=== PATIENT | female | born 1965 | race Two or more races ===

== ENCOUNTER 2016-11-30 11:28 | Emergency (ER) | payer OTHER ==
[2016-11-30 11:38] VITALS: BP 130/81
--- NOTE | 2016-11-30 12:20 | ED Physician Documentation ---
PD HPI UPPER EXT INJURY - Stated complaint Stated Complaint: R ARM INJ - Chief complaint Chief Complaint: Ext Problem - History obtained from History obtained from: Patient - History of Present Illness Location: Right, Elbow Type of injury: Fall Where injury occurred: Home Timing - onset: How many months ago (1) Timing - duration: Months (1) Timing - details: Abrupt onset, Still present Improved by: Rest, Immobilization Worsened by: Moving, Palpating Associated symptoms: No: Weakness, Numbness, Tingling, Swelling Contributing factors: No: Anticoagulated Similar symptoms before: Has not had sx before Recently seen: Other (The patient is getting dental work done at the [facility] and is on some antibiotic now.) - Additonal information Additional information: 51-year-old female had a fall out of a tree 1 month ago injuring her right elbow. She continued to work and had another fall about 2 weeks ago when she tripped over some kittens and she continues to have pain is finally coming to the emergency department. She is not able to open a door with her arm she has pain in her elbow with any movement and with direct touching of the elbow. She did not have any deformity or swelling noted. 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: Endometriosis, Ectopic , Ovarian cysts, Miscarriage(s) : Kidney stones HEENT: Chronic sinusitis, Other Psych: Depression, Post traumatic stress disorder Musculoskeletal: Osteoarthritis Derm: None - Past Surgical History Past Surgical History: Yes General: Cholecystectomy - Present Medications Home Medications: Ambulatory Orders Medication Instructions Recorded Confirmed FLUoxetine [PROzac] 80 mg ORAL DAILY 11/19/14 11/30/16 Levothyroxine [Synthroid] 175 mcg ORAL DAILY 11/19/14 11/30/16 Omeprazole [PriLOSEC] 20 mg ORAL DAILY 11/19/14 11/30/16 - Allergies Allergies/Adverse Reactions: Allergies Allergy/AdvReac Type Severity Reaction Status Date / Time No Known Drug Allergies Allergy Verified 11/30/16 11:38 - Social History Does the pt smoke?: Yes Smoking Status: Current every day smoker Does the pt drink ETOH?: Yes Does the pt have substance abuse?: No - Immunizations Immunizations are current?: Yes PD ED PE NORMAL - Vitals Vital signs reviewed: Yes (hypertensive ) - General General: No acute distress, Well developed/nourished - HEENT HEENT: Atraumatic, PERRL, EOMI - Neck Neck: Supple, no meningeal sign - Respiratory Respiratory: No respiratory distress - Derm Derm: Normal color, Warm and dry, No rash - Extremities Extremities: No deformity, No edema, Other (There is tenderness to the radial head and to the elbow area in general without swelling or crepitance. There is ROM to suppination and pronation but with pain similar to flex/extend. distal n/ v intact shoulder and wrist are without injury. ) - Neuro Neuro: Alert and oriented X 3, No motor deficit, No sensory deficit, Normal speech - Psych Psych: Normal mood, Normal affect Results - Vitals Vitals: Vital Signs - 24 hr 11/30/16 11:35 Temperature 36.4 C L Heart Rate 75 Respiratory 15 Rate Blood Pressure 130/81 H O2 Saturation 99 Oxygen O2 Source Room air - Rads (name of study) right elbow Radiology: Prelim report reviewed (Impression: No acute radiographic abnormality.), EMP read indepedently, See rad report Procedures - Splint (location) right elbow Splint applied by: Tech Type of splint: Fiberglass, Posterior Other: Patient tolerated well, No complications, Neurovascular intact, Good alignment, Sling provided PD MEDICAL DECISION MAKING - ED course Complexity details: reviewed results, re-evaluated patient, considered differential, d/w patient ED course: 51-year-old female with a sprain to the right elbow has persistent pain over the past month she is placed into a posterior splint and referred to orthopedics. Departure - Departure Disposition: 01 Home, Self Care Clinical Impression: Elbow sprain Qualifiers: Encounter type: initial encounter Laterality: right Qualified Code(s): S53.401A - Unspecified sprain of right elbow, initial encounter Condition: Stable Instructions: ED Sprain Elbow Follow-Up: [facility] [Provider Group]
--- NOTE | 2016-11-30 12:22 | XRAY Preliminary Report ---
Exam: XR Elbow 3 View RT IMPRESSION: No acute radiographic abnormality. [facility] SITE ID: [id number]
--- NOTE | 2016-11-30 12:25 | XRAY Report ---
EXAM: RIGHT ELBOW RADIOGRAPHY EXAM DATE: 11/30/2016 11:46 AM. CLINICAL HISTORY: Right elbow pain and difficulty moving after fall one week ago COMPARISON: None. TECHNIQUE: 3 views. FINDINGS: Bones: No displaced fracture. Joints: Mild osteophyte formation at the ulna humeral joint. Normal alignment. Soft Tissues: Normal. No soft tissue swelling. IMPRESSION: No acute radiographic abnormality. [facility] Referring Provider Line: [phone] SITE ID: [id number]
== END 2016-11-30 13:04 | disposition home or self-care (01) ==
LOC: ED 11:28
DX: S53.401A Unspecified sprain of right elbow, initial encounter (principal); W14.XXXA Fall from tree, initial encounter; W01.0XXA Fall on same level from slipping, tripping and stumbling without subsequent striking against object, initial encounter; Y92.009 Unspecified place in unspecified non-institutional (private) residence as the place of occurrence of the external cause; F17.200 Nicotine dependence, unspecified, uncomplicated
CPT/HCPCS: 29105; 99283

== ENCOUNTER 2016-12-07 12:36 | Emergency (ER) | payer OTHER ==
[2016-12-07 12:48] VITALS: BP 165/99
--- NOTE | 2016-12-07 12:54 | ED Physician Documentation ---
PD HPI HEENT - Stated complaint Stated Complaint: MOUTH PX,SWELLING, BURNING - Chief complaint Chief Complaint: Heent - History obtained from History obtained from: Patient - History of Present Illness Timing - onset: Other (She had 3 teeth removed 2 days ago at the [facility] and has diffuse burning pain of the mouth without focal pain of 1 of the sites. All of the teeth were removed from the maxilla. No fevers. She does have a sensation of left facial swelling. 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, Ectopic , Ovarian cysts, Miscarriage(s) : Kidney stones HEENT: Chronic sinusitis, Other Psych: Depression, Post traumatic stress disorder Musculoskeletal: Osteoarthritis Derm: None - Past Surgical History Past Surgical History: Yes General: Cholecystectomy - Present Medications Home Medications: Ambulatory Orders Medication Instructions Recorded Confirmed FLUoxetine [PROzac] 80 mg ORAL DAILY 11/19/14 12/07/16 Levothyroxine [Synthroid] 175 mcg ORAL DAILY 11/19/14 12/07/16 Omeprazole [PriLOSEC] 20 mg ORAL DAILY 11/19/14 12/07/16 Acetaminophen 500 mg PO Q6HR 12/07/16 12/07/16 Docusate Sodium 250Mg Capsule 250 mg PO BID 12/07/16 12/07/16 [Colace 250Mg Capsule] HYDROcod/ACETAM 5/325 [[place] 5/325] 1 tab PO Q4HR PRN 12/07/16 12/07/16 Oxycodone HCl/Acetaminophen 1 - 2 tab PO Q4H PRN #15 tablet 12/07/16 [Percocet 5-325 mg Tablet] Penicillin V Potassium 500 mg PO QID #40 tablet 12/07/16 - Allergies Allergies/Adverse Reactions: Allergies Allergy/AdvReac Type Severity Reaction Status Date / Time No Known Drug Allergies Allergy Verified 11/30/16 11:38 - Social History Does the pt smoke?: Yes Smoking Status: Current every day smoker Does the pt drink ETOH?: Yes Does the pt have substance abuse?: No - Immunizations Immunizations are current?: Yes PD ED PE NORMAL - Vitals Vital signs reviewed: Yes - General General: Alert and oriented X 3, No acute distress - HEENT HEENT: Pharynx benign (No trismus), Other (There is no dry socket, looks like she had 3 teeth removed, #10, #7, #4. She is diffusely tender over the maxilla without obvious facial swelling or cellulitis.) - Neck Neck: Supple, no meningeal sign, No bony TTP - Neuro Neuro: Alert and oriented X 3, Normal speech - Psych Psych: Normal mood, Normal affect Results - Vitals Vitals: Vital Signs - 24 hr 12/07/16 12:44 Temperature 36.0 C L Heart Rate 78 Respiratory 15 Rate Blood Pressure 165/99 H O2 Saturation 96 Oxygen O2 Source Room air PD MEDICAL DECISION MAKING - ED course ED course: The [place] prescription monitoring program was queried with regard to this patient. No concerning findings were found. Departure - Departure Disposition: 01 Home, Self Care Clinical Impression: Post-operative pain Condition: Good Record reviewed to determine appropriate education?: Yes Instructions: ED Tooth Pain Prescriptions: Penicillin V Potassium 500 mg PO QID #40 tablet Oxycodone HCl/Acetaminophen [Percocet 5-325 mg Tablet] 1 - 2 tab PO Q4H PRN #15 tablet PRN Reason: Pain Comments: Call your dentist on Friday, return if worse. Your blood pressure was elevated today on check into the emergency department. This does not mean that you have hypertension, it is a common phenomenon to come to the emergency department and have elevated blood pressure. I recommend that she see your primary care physician within the week to have it rechecked when you are feeling better. Do not drink or drive while taking narcotic pain medication. Note that many narcotic pain relievers also contain Tylenol/acetaminophen. Please ensure that your total dose of acetaminophen from all sources does not exceed 3 g (3000 mg) per day. You may get constipated while on this medication. Take a stool softener such as Colace twice a day while you are on it. Also add an bybl-ule-awhnwln laxative such as senna or MiraLAX on any day that you do not have a bowel movement. If you received a narcotic pain medication or sedative while in the emergency department, do not drive for the next 24 hours.
== END 2016-12-07 13:03 | disposition home or self-care (01) ==
LOC: ED 12:36
DX: K13.79 Other lesions of oral mucosa (principal); G89.18 Other acute postprocedural pain; K08.409 Partial loss of teeth, unspecified cause, unspecified class; R03.0 Elevated blood-pressure reading, without diagnosis of hypertension; J45.909 Unspecified asthma, uncomplicated; E03.9 Hypothyroidism, unspecified; K21.9 Gastro-esophageal reflux disease without esophagitis; M19.90 Unspecified osteoarthritis, unspecified site; Z87.442 Personal history of urinary calculi; Z87.42 Personal history of other diseases of the female genital tract; F17.200 Nicotine dependence, unspecified, uncomplicated
CPT/HCPCS: 99283

== ENCOUNTER 2017-02-12 19:30 | Emergency (ER) | payer OTHER ==
[2017-02-12] MEDS ORDERED: KETOROLAC 60 MG/2 ML VIAL IVP STA (20:16)
[2017-02-12] MEDS ORDERED: SODIUM CHLORIDE 0.9% 1,000 ML IV ONE (20:16)
[2017-02-12] MEDS ORDERED: METOCLOPRAMIDE 10 MG/2 ML VIAL IVP STA (20:17)
[2017-02-12] MEDS ORDERED: diphenhydrAMINE INJ 50 MG/ML VIAL IVP STA (20:17)
[2017-02-12] MEDS ORDERED: KETOROLAC 15 MG/ML VIAL ONE (20:27)
[2017-02-12] MEDS ORDERED: METOCLOPRAMIDE 10 MG/2 ML VIAL ONE (20:27)
[2017-02-12] MEDS ORDERED: diphenhydrAMINE INJ 50 MG/ML VIAL ONE (20:27)
--- NOTE | 2017-02-12 21:09 | CT Preliminary Report ---
Exam: CT HEAD W/O IMPRESSION: Normal head CT. [facility] SITE ID: [id number]
--- NOTE | 2017-02-12 21:15 | CT Report ---
EXAM: CT HEAD EXAM DATE: 02/12/2017 08:55 PM. CLINICAL HISTORY: History of traumatic brain injury. Patient presents with increasing headache, nause a and dizziness over the last 3 months. COMPARISON: 08/23/2015. TECHNIQUE: Multiaxial CT images were obtained from the foramen magnum to the vertex. Reformats: Coron al. IV contrast: None. In accordance with CT protocol optimization, one or more of the following dose reduction techniques w ere utilized for this exam: automated exposure control, adjustment of mA and/or KV based on patient s ize, or use of iterative reconstructive technique. FINDINGS: Parenchyma: No intraparenchymal hemorrhage. No evidence of mass, midline shift, or CT findings of inf arction. Wilks-white differentiation is distinct. Extraaxial Spaces: Normal for age. No subdural or epidural collections identified. Ventricles: Normal in size and position. Sinuses and Orbits: Imaged paranasal sinuses, orbits, and mastoids show no significant abnormality. Bones: No evidence of fracture or calvarial defect. Other: None. IMPRESSION: Normal head CT. [facility] Referring Provider Line: [phone] SITE ID: [id number]
--- NOTE | 2017-02-12 21:35 | ED Physician Documentation ---
PD HPI HEADACHE - Stated complaint Stated Complaint: MASON - Chief complaint Chief Complaint: Neuro - History obtained from History obtained from: Patient - History of Present Illness Timing - onset: How many months ago (3) Timing - onset during: Rest Timing - details: Gradual onset, Still present, Constant Location: Global Quality: Throbbing, Aching. No: Thunderclap Associated symptoms: Nausea. No: Fever, Stiff neck, Vomiting, Weakness, Numbness Worsened by: Light, Noise Similar symptoms before: Work up / diagnostics, Treatment Recently seen: Not recently seen - Additional information Additional information: Patient is a 51 year old female with a history of anxiety, depression, migraines and prior mild head trauma who is presenting to the emergency department for three months of headaches. patient states that her headaches have been fairly constant. she states that they are worse with light, noise and movement. Patient states that she has not been able to see her doctor [facility] for the [facility]. Patient states that she used but be on migraine medications in the past but does not take them now. patient states that she has not been sleeping well lately. Review of Systems Constitutional: denies: Fever, Chills Eyes: reports: Photophobia Ears: reports: Loss of hearing, Ear pain, Tinnitus/ringing Nose: reports: Sinus pressure / pain. denies: Rhinorrhea / runny nose, Congestion Throat: denies: Dental pain / toothache, Sore throat Cardiac: denies: Chest pain / pressure, Palpitations Respiratory: denies: Dyspnea, Cough GI: reports: Nausea. denies: Vomiting, Constipation, Diarrhea : denies: Dysuria, Frequency, Hesitancy Skin: denies: Rash, Lesions Musculoskeletal: denies: Neck pain, Back pain, Extremity pain, Joint pain Neurologic: reports: Headache. 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, Ectopic , Ovarian cysts, Miscarriage(s) : Kidney stones HEENT: Chronic sinusitis, Other Psych: Depression, Post traumatic stress disorder Musculoskeletal: Osteoarthritis Derm: None Other Past Medical History: history of head trauma - Past Surgical History Past Surgical History: Yes General: Cholecystectomy - Present Medications Home Medications: Ambulatory Orders Medication Instructions Recorded Confirmed FLUoxetine [PROzac] 80 mg ORAL DAILY 11/19/14 12/07/16 Levothyroxine [Synthroid] 175 mcg ORAL DAILY 11/19/14 12/07/16 Omeprazole [PriLOSEC] 20 mg ORAL DAILY 11/19/14 12/07/16 HYDROcod/ACETAM 5/325 [[place] 5/325] 1 tab PO Q4HR PRN 12/07/16 12/07/16 Ondansetron Odt [Zofran] 4 mg TL Q6H PRN #14 tablet 02/12/17 - Allergies Allergies/Adverse Reactions: Allergies Allergy/AdvReac Type Severity Reaction Status Date / Time No Known Drug Allergies Allergy Verified 02/12/17 19:45 - Social History Does the pt smoke?: Yes Smoking Status: Current every day smoker Does the pt drink ETOH?: Yes Does the pt have substance abuse?: No - Immunizations Immunizations are current?: Yes - POLST Patient has POLST: No PD ED PE NORMAL - Vitals Vital signs reviewed: Yes - General General: Alert and oriented X 3, No acute distress, Well developed/nourished - HEENT HEENT: Atraumatic, PERRL, Ears normal, Moist mucous membranes, Pharynx benign - Neck Neck: Supple, no meningeal sign - Cardiac Cardiac: RRR, No murmur - Respiratory Respiratory: No respiratory distress, Clear bilaterally - Abdomen Abdomen: Soft, Non tender, Non distended - Derm Derm: Normal color, Warm and dry, No rash - Extremities Extremities: No deformity, No edema - Neuro Neuro: Alert and oriented X 3, 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, No motor deficit, No sensory deficit, Normal speech Eye Opening: Spontaneous Motor: Obeys Commands Verbal: Oriented GCS Score: 15 - Psych Psych: Normal mood PD ED PE EXPANDED - HEENT HEENT: R TM loss of landmarks, L TM loss of landmarks (scarring of bilateral tms ) Results - Vitals Vitals: Vital Signs - 24 hr 02/12/17 02/12/17 02/12/17 19:42 21:02 22:18 Temperature 36.4 C L 36.6 C Heart Rate 85 68 91 Respiratory 20 18 16 Rate Blood Pressure 159/101 H 104/63 110/68 O2 Saturation 98 96 94 Oxygen O2 Source Room air - Rads (name of study) ct head Radiology: Final report received (no acute intracranial abnormality) PD MEDICAL DECISION MAKING - ED course Complexity details: reviewed old records, reviewed results, re-evaluated patient , considered differential, d/w patient ED course: Patient was seen and examined at bedside. patient was well appearing but did have apparent photophobia. IV access was gained and patient was treated with toradol, reglan,, IV fluids, and bendaryl. due to the duration of symptoms CT was ordered. When patient returned the results were reviewed and there were no acute abnormalities. Patient had mild relief from her headache, but it was unlikely acute in nature. patient required no further inpatient work up and was stable for discharge with outpatient follow up. Departure - Departure Disposition: Home, Self Care Clinical Impression: Headache Condition: Good Instructions: ED Cephalgia Unspecified Follow-Up: primary,care provider [Other] - Within 3 Days Prescriptions: Ondansetron Odt [Zofran] 4 mg TL Q6H PRN #14 tablet PRN Reason: Nausea / Vomiting Comments: Your diagnostics today were within normal limits. there is no sign of any intracranial pathology. While the CT is a good test , it is not the most specific test. You will need to follow up with your primary care provider for further evaluation and possibly a MRI. You should try to get plenty of sleep, and stay well hydrated as they can be two of the most common reasons for persistent headaches. You can take motrin or tylenol as needed for headaches. You may return to the emergency department at any time for new, worsening or uncontrollable symptoms. Discharge Date/Time: 02/12/17 22:18
[2017-02-12 22:18] VITALS: BP 110/68
== END 2017-02-12 22:18 | disposition home or self-care (01) ==
LOC: ED 19:30
DX: R51 Headache (principal); E03.9 Hypothyroidism, unspecified; F17.200 Nicotine dependence, unspecified, uncomplicated
CPT/HCPCS: 70450; 96361; 96374; 96375; 99283; 99284

== ENCOUNTER 2017-05-20 15:45 | Emergency (ER) | payer OTHER ==
--- NOTE | 2017-05-20 16:44 | ED Physician Documentation ---
PD HPI HEENT - Stated complaint Stated Complaint: FACIAL SWELLING - Chief complaint Chief Complaint: General - History obtained from History obtained from: Patient - History of Present Illness Timing - onset: How many days ago (3) Timing - duration: Days (3) Timing - details: Gradual onset, Still present Location: Sinuses (purulent drainage and pain in sinuses maxillary area.), Nose , Throat, Other (eyes with discharge and irritation of them for a day) Associated symptoms: Swollen nodes, Facial swelling (she feels she has swelling of cheeks and maxillary area. Not readily visible to me though.). No: Fever, Headache Review of Systems Constitutional: reports: Myalgias. denies: Fever, Chills Ears: denies: Ear pain Nose: reports: Congestion, Sinus pressure / pain Throat: denies: Dental pain / toothache, Sore throat Respiratory: denies: Cough GI: reports: Nausea, Vomiting. 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, Ectopic , Ovarian cysts, Miscarriage(s) : Kidney stones HEENT: Chronic sinusitis, Other Psych: Depression, Post traumatic stress disorder Musculoskeletal: Osteoarthritis Derm: None - Past Surgical History Past Surgical History: Yes General: Cholecystectomy - Present Medications Home Medications: Ambulatory Orders Medication Instructions Recorded Confirmed FLUoxetine [PROzac] 80 mg ORAL DAILY 11/19/14 12/07/16 Levothyroxine [Synthroid] 175 mcg ORAL DAILY 11/19/14 12/07/16 Clindamycin HCl [Cleocin HCl] 300 mg PO TID #21 capsule 05/20/17 Naproxen 375 mg PO BID #20 tablet 05/20/17 Oxycodone HCl/Acetaminophen 1 each PO Q6H PRN #20 tablet 05/20/17 [Percocet 5-325 mg Tablet] Sulfacetamide 10% Ophth Drops 2 drops LEFTEYE Q3H #1 bottle 05/20/17 [Sulfamide 10% Ophth Drops] - Allergies Allergies/Adverse Reactions: Allergies Allergy/AdvReac Type Severity Reaction Status Date / Time No Known Drug Allergies Allergy Verified 05/20/17 16:41 - Social History Does the pt smoke?: Yes Smoking Status: Current every day smoker Does the pt drink ETOH?: Yes Does the pt have substance abuse?: No - Immunizations Immunizations are current?: Yes - POLST Patient has POLST: No PD ED PE NORMAL - Vitals Vital signs reviewed: Yes - General General: Alert and oriented X 3, No acute distress, Well developed/nourished - HEENT HEENT: PERRL (both eyes with some conjunctival redness and mild matting. Medial canthi with some purulence. ), Ears normal, Moist mucous membranes, Pharynx benign - Neck Neck: Supple, no meningeal sign, No adenopathy - Cardiac Cardiac: RRR, No murmur - Respiratory Respiratory: Clear bilaterally - Derm Derm: Normal color, Warm and dry, No rash - Neuro Neuro: Alert and oriented X 3, No motor deficit, Normal speech Results - Vitals Vitals: Oxygen O2 Source Room air PD MEDICAL DECISION MAKING - ED course Complexity details: considered differential (seems sinusitis, and the eyes is most likely backflow, but can treat with eye drops as well. ), d/w patient Departure - Departure Disposition: 01 Home, Self Care Clinical Impression: Sinusitis, acute maxillary Qualifiers: Recurrence: non-recurrent Qualified Code(s): J01.00 - Acute maxillary sinusitis , unspecified Conjunctivitis Qualifiers: Conjunctivitis type: acute Acute conjunctivitis type: unspecified Laterality: left Qualified Code(s): H10.32 - Unspecified acute conjunctivitis, left eye Condition: Stable Record reviewed to determine appropriate education?: Yes Instructions: ED Sinusitis Abx Tx Prescriptions: Clindamycin HCl [Cleocin HCl] 300 mg PO TID #21 capsule Naproxen 375 mg PO BID #20 tablet Oxycodone HCl/Acetaminophen [Percocet 5-325 mg Tablet] 1 each PO Q6H PRN #20 tablet PRN Reason: Pain Sulfacetamide 10% Ophth Drops [Sulfamide 10% Ophth Drops] 2 drops LEFTEYE Q3H # 1 bottle Comments: This sounds like a sinus infection that has ascended up the duct to the eye as well. Use clindamycin antibiotic 3 times a day for a week. Naproxen twice daily for inflammation and pain. Add Percocet if needed for worse pain. You can use these sulfa eyedrops on the affected eye as well every 3 hours while awake. Recheck if not improving over the next couple of days. Discharge Date/Time: 05/20/17 17:16
[2017-05-20] MEDS ORDERED: NAPROXEN 250 MG TABLET PO STA (16:53)
[2017-05-20] MEDS ORDERED: oxyCOD/ACETAMIN 5 MG/325 MG TABLET PO STA (16:53)
[2017-05-20] MEDS ORDERED: CLINDAMYCIN 150 MG CAPSULE PO STA (16:53)
[2017-05-20 17:18] VITALS: BP 138/89
== END 2017-05-20 17:16 | disposition home or self-care (01) ==
LOC: ED 15:45
DX: J01.00 Acute maxillary sinusitis, unspecified (principal); H10.32 Unspecified acute conjunctivitis, left eye; E03.9 Hypothyroidism, unspecified; F17.200 Nicotine dependence, unspecified, uncomplicated
CPT/HCPCS: 99283; A9270

== ENCOUNTER 2017-10-05 11:32 | Emergency (ER) | payer OTHER ==
--- NOTE | 2017-10-05 13:13 | ED Physician Documentation ---
PD HPI BACK INJURY - Stated complaint Stated Complaint: BACK PX - History obtained from History obtained from: Patient - History of Present Illness Location: Both, Lower Type of injury: Twist (has history of back pains and it hurts more after lifting /bending a few days ago.) Where injury occurred: Home Timing - onset: How many days ago (few) Timing - duration: Days (few) Timing - details: Abrupt onset, Waxing and waning Quality: Pain, Spasm. No: Tearing, Aching Associated symptoms: Numbness (at times in both thighs). No: Fever, Weakness, Incontinent of urine Similar symptoms before: Diagnosis (herniated discs with ongoing pain. Does not want to have surgery that has been suggested.) Review of Systems Constitutional: denies: Fever, Chills, Myalgias Nose: denies: Rhinorrhea / runny nose, Congestion Throat: denies: Sore throat Cardiac: denies: Chest pain / pressure Respiratory: denies: Dyspnea, Cough GI: denies: Abdominal Pain, Nausea, Vomiting, Diarrhea : denies: Dysuria, Frequency Skin: denies: Rash Neurologic: reports: Numbness. 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: Endometriosis, Ectopic , Ovarian cysts, Miscarriage(s) : Kidney stones HEENT: Chronic sinusitis, Other Psych: Depression, Post traumatic stress disorder Musculoskeletal: Osteoarthritis Derm: None - Past Surgical History Past Surgical History: Yes General: Cholecystectomy - Present Medications Home Medications: Ambulatory Orders Medication Instructions Recorded Confirmed FLUoxetine [PROzac] 80 mg ORAL DAILY 11/19/14 12/07/16 Levothyroxine [Synthroid] 175 mcg ORAL DAILY 11/19/14 12/07/16 Dexamethasone [Decadron] 4 mg PO DAILY #5 tablet 10/05/17 HYDROcod/ACETAM 5/325 [[place] 5/325] 1 tab PO Q6H PRN #25 tablet 10/05/17 Methocarbamol [Robaxin] 500 mg PO Q6H PRN #25 tablet 10/05/17 Naproxen 375 mg PO BID #20 tablet 10/05/17 Omeprazole 20 mg PO 10/05/17 - Allergies Allergies/Adverse Reactions: Allergies Allergy/AdvReac Type Severity Reaction Status Date / Time No Known Drug Allergies Allergy Verified 10/05/17 11:40 - Social History Does the pt smoke?: Yes Smoking Status: Current every day smoker Does the pt drink ETOH?: Yes Does the pt have substance abuse?: No - Immunizations Immunizations are current?: Yes - POLST Patient has POLST: No PD ED PE NORMAL - Vitals Vital signs reviewed: Yes - General General: Alert and oriented X 3, Well developed/nourished, Other (appears in pain) - Abdomen Abdomen: Soft, Non tender, Other (obese) - Derm Derm: Normal color, Warm and dry, No rash - Neuro Neuro: No motor deficit, Other (normal DTRs at knees). No: No sensory deficit ( less sensation lateral thighs and lower legs. ) Results - Vitals Vitals: Vital Signs - 24 hr 10/05/17 10/05/17 11:38 14:25 Temperature 36.7 C 36.5 C Heart Rate 95 69 Respiratory 20 18 Rate Blood Pressure 130/70 119/76 O2 Saturation 94 95 Oxygen O2 Source Room air PD MEDICAL DECISION MAKING - ED course Complexity details: considered differential (no red flags regarding the history. Exam without focal findings. ), d/w patient - Sepsis Event Vital Signs: Vital Signs - 24 hr 10/05/17 10/05/17 11:38 14:25 Temperature 36.7 C 36.5 C Heart Rate 95 69 Respiratory 20 18 Rate Blood Pressure 130/70 119/76 O2 Saturation 94 95 Oxygen O2 Source Room air Departure - Departure Disposition: 01 Home, Self Care Clinical Impression: Acute exacerbation of chronic low back pain Condition: Stable Record reviewed to determine appropriate education?: Yes Instructions: ED Low Back Pain Injury Follow-Up: [facility] [Provider Group] Prescriptions: Dexamethasone [Decadron] 4 mg PO DAILY #5 tablet HYDROcod/ACETAM 5/325 [[place] 5/325] 1 tab PO Q6H PRN #25 tablet PRN Reason: Pain Methocarbamol [Robaxin] 500 mg PO Q6H PRN #25 tablet PRN Reason: Spasms Naproxen 375 mg PO BID #20 tablet Comments: Heat and gentle stretching for the low back. Use naproxen twice daily as an anti-inflammatory and also Decadron daily for 5 days also for inflammation. Robaxin as needed for stiffness and spasms. Add hydrocodone if needed. [facility] not improved over the next several days. Discharge Date/Time: 10/05/17 14:32
[2017-10-05] MEDS ORDERED: DEXAMETHASONE 10 MG/ML VIAL PO STA (13:27)
[2017-10-05] MEDS ORDERED: KETOROLAC 30 MG/ML VIAL IM STA (13:27)
[2017-10-05] MEDS ORDERED: MORPHINE 10 MG/ML VIAL IM STA (13:27)
[2017-10-05] MEDS ORDERED: METHOCARBAMOL 500 MG TABLET PO STA (13:27)
[2017-10-05 14:25] VITALS: BP 119/76
== END 2017-10-05 14:32 | disposition home or self-care (01) ==
LOC: ED 11:32
DX: M54.5 Low back pain (principal); G89.29 Other chronic pain; E03.9 Hypothyroidism, unspecified; F17.200 Nicotine dependence, unspecified, uncomplicated
CPT/HCPCS: 96372; 99283; A9270

== ENCOUNTER 2017-12-07 23:06 | Emergency (ER) | payer OTHER ==
--- NOTE | 2017-12-07 23:24 | ED Physician Documentation ---
History of Present Illness - Stated complaint Stated Complaint: HEAD,NECK PAIN - Chief complaint Chief Complaint: Resp - History obtained from History obtained from: Patient - Additonal information Additional information: 52-year-old female Presents the emergency department with multiple complaints. The patient reports of a global headache which she reports is a throbbing and is associated with nausea. The patient denies vision changes, head injury, focal motor weakness, fevers, speech difficulty or numbness and tingling. The patient reports chest pain and shortness of breath. The patient's symptoms have been ongoing for the past 3 days. No specific triggering factors. No relieving factors. The patient reports feeling generally weak. Symptoms are described as moderate. Review of Systems Constitutional: denies: Fever, Chills Eyes: denies: Discharge Ears: denies: Ear pain Nose: denies: Congestion Throat: denies: Sore throat Cardiac: reports: Chest pain / pressure. denies: Pedal edema Respiratory: reports: Dyspnea, Wheezing. denies: Cough GI: denies: Abdominal Pain : denies: Dysuria Skin: denies: Rash Musculoskeletal: reports: Neck pain. denies: Joint pain Neurologic: reports: Headache. 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, Ectopic , Ovarian cysts, Miscarriage(s) : Kidney stones HEENT: Chronic sinusitis, Other Psych: Depression, Post traumatic stress disorder Musculoskeletal: Osteoarthritis Derm: None - Past Surgical History Past Surgical History: Yes General: Cholecystectomy - Present Medications Home Medications: Ambulatory Orders Medication Instructions Recorded Confirmed FLUoxetine [PROzac] 80 mg ORAL DAILY 11/19/14 12/07/16 Levothyroxine [Synthroid] 175 mcg ORAL DAILY 11/19/14 12/07/16 Dexamethasone [Decadron] 4 mg PO DAILY #5 tablet 10/05/17 HYDROcod/ACETAM 5/325 [[place] 5/325] 1 tab PO Q6H PRN #25 tablet 10/05/17 Methocarbamol [Robaxin] 500 mg PO Q6H PRN #25 tablet 10/05/17 Naproxen 375 mg PO BID #20 tablet 10/05/17 Omeprazole 20 mg PO 10/05/17 Albuterol Sulf [Ventolin Hfa 1 - 2 puffs INH Q4HR PRN #1 inhaler 12/08/17 Inhaler] - Allergies Allergies/Adverse Reactions: Allergies Allergy/AdvReac Type Severity Reaction Status Date / Time No Known Drug Allergies Allergy Verified 10/05/17 11:40 - Social History Does the pt smoke?: Yes Smoking Status: Current every day smoker Does the pt drink ETOH?: Yes Does the pt have substance abuse?: No - Immunizations Immunizations are current?: Yes - POLST Patient has POLST: No PD ED PE NORMAL - General General: Alert and oriented X 3 - HEENT HEENT: Atraumatic, PERRL, EOMI, Ears normal, Moist mucous membranes - Neck Neck: Supple, no meningeal sign, No JVD - Cardiac Cardiac: RRR, Strong equal pulses - Respiratory Respiratory: No respiratory distress. No: Clear bilaterally (Moderate aeration with wheezing) - Abdomen Abdomen: Soft, Non tender - Derm Derm: Normal color - Extremities Extremities: No deformity, No tenderness to palpate, Normal ROM s pain - Neuro Neuro: Alert and oriented X 3 - Psych Psych: Normal mood Results - Vitals Vitals: Vital Signs - 24 hr 12/07/17 12/07/17 12/08/17 23:11 23:45 00:48 Temperature 36.4 C L Heart Rate 71 78 64 Respiratory 20 18 15 Rate Blood Pressure 151/110 H 165/78 H O2 Saturation 97 94 12/08/17 12/08/17 01:55 02:39 Temperature Heart Rate 71 68 Respiratory 14 12 Rate Blood Pressure 126/86 H 108/73 O2 Saturation 94 94 Oxygen O2 Source Room air - EKG (time done) 23:29 Rate: Rate (enter#) Rhythm: NSR [place]: Normal Intervals: Normal RI QRS: Normal Ischemia: Normal ST segments - Labs Labs: Laboratory Tests 12/07/17 12/07/17 12/07/17 23:42 23:42 23:42 WBC 6.0 RBC 4.82 Hgb 13.9 Hct 41.6 MCV 86.4 MCH 28.8 MCHC 33.3 RDW 14.4 Plt Count 258 MPV 8.0 Neut # (Auto) 3.7 Lymph # (Auto) 1.8 [place] # (Auto) 0.4 Eos # (Auto) 0.1 Baso # (Auto) 0.0 Absolute Nucleated RBC 0.00 Nucleated RBC % 0.0 D-Dimer Sodium 137 Potassium 4.3 Chloride 105 Carbon Dioxide 26 Anion Gap 6.0 BUN 18 Creatinine 0.8 Estimated GFR (MDRD) 75 L Glucose 115 H Calcium 8.8 Total Bilirubin 0.6 AST 16 ALT 24 Alkaline Phosphatase 121 Troponin I 0.04 B-Natriuretic Peptide Total Protein 7.0 Albumin 3.7 Globulin 3.3 Albumin/Globulin Ratio 1.1 Lipase 29 Urine Color Urine Clarity Urine pH Ur Specific [place] Urine Protein Urine Glucose (UA) Urine Ketones Urine Occult Blood Urine Nitrite Urine Bilirubin Urine Urobilinogen Ur Leukocyte Esterase Ur Microscopic Review Urine Culture Comments 12/07/17 12/07/17 12/08/17 23:42 23:42 00:40 WBC RBC Hgb Hct MCV MCH MCHC RDW Plt Count MPV Neut # (Auto) Lymph # (Auto) [place] # (Auto) Eos # (Auto) Baso # (Auto) Absolute Nucleated RBC Nucleated RBC % D-Dimer < 200.0 L Sodium Potassium Chloride Carbon Dioxide Anion Gap BUN Creatinine Estimated GFR (MDRD) Glucose Calcium Total Bilirubin AST ALT Alkaline Phosphatase Troponin I B-Natriuretic Peptide 15 Total Protein Albumin Globulin Albumin/Globulin Ratio Lipase Urine Color YELLOW Urine Clarity CLEAR Urine pH 6.0 Ur Specific [place] 1.020 Urine Protein NEGATIVE Urine Glucose (UA) NEGATIVE Urine Ketones NEGATIVE Urine Occult Blood NEGATIVE Urine Nitrite NEGATIVE Urine Bilirubin NEGATIVE Urine Urobilinogen 0.2 (NORMAL) Ur Leukocyte Esterase NEGATIVE Ur Microscopic Review NOT INDICATED Urine Culture Comments NOT INDICATED 12/08/17 02:57 WBC RBC Hgb Hct MCV MCH MCHC RDW Plt Count MPV Neut # (Auto) Lymph # (Auto) [place] # (Auto) Eos # (Auto) Baso # (Auto) Absolute Nucleated RBC Nucleated RBC % D-Dimer Sodium Potassium Chloride Carbon Dioxide Anion Gap BUN Creatinine Estimated GFR (MDRD) Glucose Calcium Total Bilirubin AST ALT Alkaline Phosphatase Troponin I < 0.04 B-Natriuretic Peptide Total Protein Albumin Globulin Albumin/Globulin Ratio Lipase Urine Color Urine Clarity Urine pH Ur Specific [place] Urine Protein Urine Glucose (UA) Urine Ketones Urine Occult Blood Urine Nitrite Urine Bilirubin Urine Urobilinogen Ur Leukocyte Esterase Ur Microscopic Review Urine Culture Comments - Rads (name of study) CXR Radiology: Final report received CT head Radiology: Final report received PD MEDICAL DECISION MAKING - ED course ED course: The patient's workup does not reveal any significant abnormality. The patient's chest pain currently seems more related to the wheezing. The patient appears appropriate for further workup as an outpatient with a stress test and echocardiogram since her heart score places her into a low risk category. Regarding the patient's headache on reevaluation she felt much improved, her head CT did not show any significant abnormality and I explained that I could do a lumbar puncture to further evaluate her headache. The patient currently does not want a lumbar puncture. I discussed warning signs and recommended that the patient should return to the emergency department immediately for any worsening or any concerns. - Sepsis Event Vital Signs: Vital Signs - 24 hr 12/07/17 12/07/17 12/08/17 23:11 23:45 00:48 Temperature 36.4 C L Heart Rate 71 78 64 Respiratory 20 18 15 Rate Blood Pressure 151/110 H 165/78 H O2 Saturation 97 94 12/08/17 12/08/17 01:55 02:39 Temperature Heart Rate 71 68 Respiratory 14 12 Rate Blood Pressure 126/86 H 108/73 O2 Saturation 94 94 Oxygen O2 Source Room air Departure - Departure Disposition: 01 Home, Self Care Clinical Impression: Wheezing, Nausea Headache Qualifiers: Headache type: unspecified Headache chronicity pattern: acute headache Intractability: not intractable Qualified Code(s): R51 - Headache Chest pain Qualifiers: Chest pain type: unspecified Qualified Code(s): R07.9 - Chest pain, unspecified Condition: Good Instructions: ED Bronchitis Asthmatic, ED Cephalgia Unspecified, ED Chest Pain [facility] Prescriptions: Albuterol Sulf [Ventolin Hfa Inhaler] 1 - 2 puffs INH Q4HR PRN #1 inhaler PRN Reason: Shortness Of Air/Wheezing Comments: Please follow-up with your primary care doctor in the next 1-2 days for recheck. Please ask your primary care about an echocardiogram and outpatient stress test. You declined a lumbar puncture for further evaluation of your headache. Please return back to the emergency department immediately for any worsening or any concerns at any point.
[2017-12-07] MEDS ORDERED: ASPIRIN CHEW 81 MG TABLET PO STA (23:35)
[2017-12-07] MEDS ORDERED: SODIUM CHLORIDE 0.9% 1,000 ML IV ONE (23:35)
[2017-12-07] MEDS ORDERED: METOCLOPRAMIDE 10 MG/2 ML VIAL IVP STA (23:35)
[2017-12-07] MEDS ORDERED: MORPHINE 10 MG/ML VIAL IVP STA (23:35)
[2017-12-07] MEDS ORDERED: IPRATROPIUM/ALBUTEROL 3 ML NEB INH STA (23:36)
[2017-12-07 23:50] LABS: BASOPHILS % (AUTO) 0.8 %; EOSINOPHILS # (AUTO) 0.1 10^3/uL (0.0-0.7); EOSINOPHILS % (AUTO) 2.2 %; HGB - HEMOGLOBIN 13.9 g/dL (12.0-16.0); LYMPHOCYTES # (AUTO) 1.8 10^3/uL (1.5-3.5); LYMPHOCYTES % (AUTO) 30.3 %; MEAN CORPUSCULAR HEMOGLOBIN 28.8 pg (27.0-31.0); MEAN CORPUSCULAR HGB CONC 33.3 g/dL (32.0-36.0); MEAN CORPUSCULAR VOLUME 86.4 fL (81.0-99.0); MONOCYTES # (AUTO) 0.4 10^3/uL (0.0-1.0); MONOCYTES % (AUTO) 6.2 %; NEUTROPHILS # (AUTO) 3.7 10^3/uL (1.5-6.6); NEUTROPHILS % (AUTO) 60.5 %; PLT - PLATELET COUNT 258 10^3/uL (130-450); RED BLOOD COUNT 4.82 10^6/uL (4.20-5.40); RED CELL DISTRIBUTION WIDTH 14.4 % (12.0-15.0)
[2017-12-08 00:02] LABS: ALBUMIN 3.7 g/dL (3.2-5.5); ALBUMIN/GLOBULIN RATIO 1.1 (1.0-2.2); BILIRUBIN,TOTAL 0.6 mg/dL (0.2-1.0); CALCIUM 8.8 mg/dL (8.5-10.3); CREATININE 0.8 mg/dL (0.4-1.0)
--- NOTE | 2017-12-08 00:24 | CT Report ---
Reason: vo Procedure Date: 12/08/2017 Accession Number: [id number] / [id number] Procedure: CT - Head W/O CPT Code: FULL RESULT: EXAM: CT HEAD EXAM DATE: 12/08/2017 12:15 AM. CLINICAL HISTORY: Chronic headaches. COMPARISON: HEAD W/O 02/12/2017 8:46 PM. TECHNIQUE: Multiaxial CT images were obtained from the foramen magnum to the vertex. Reformats: Coronal. IV contrast: None. In accordance with CT protocol optimization, one or more of the following dose reduction techniques were utilized for this exam: automated exposure control, adjustment of mA and/or KV based on patient size, or use of iterative reconstructive technique. FINDINGS: Parenchyma: No intraparenchymal hemorrhage. No evidence of mass, midline shift, or CT findings of infarction. Wilks-white differentiation is distinct. Extraaxial Spaces: Normal for age. No subdural or epidural collections identified. Ventricles: Normal in size and position. Sinuses and Orbits: Imaged paranasal sinuses, orbits, and mastoids show no significant abnormality. Bones: No evidence of fracture or calvarial defect. IMPRESSION: Normal head CT. RADIA
--- NOTE | 2017-12-08 00:27 | XRAY Report ---
Reason: CP Procedure Date: 12/08/2017 Accession Number: [id number] / [id number] Procedure: XR - Chest 2 View X-Ray CPT Code: 36326 FULL RESULT: EXAM: CHEST RADIOGRAPHY EXAM DATE: 12/08/2017 12:22 AM. CLINICAL HISTORY: Chest pain COMPARISON: CHEST 2 VIEW PA/LAT 08/07/2015 11:35 PM. TECHNIQUE: 2 views. FINDINGS: Lungs/Pleura: No focal opacities evident. No pleural effusion. No pneumothorax. Normal volumes. Mediastinum: Heart and mediastinal contours are unremarkable. Other: None. IMPRESSION: Normal 2-view chest radiography. RADIA
[2017-12-08] MEDS ORDERED: PROMETHAZINE INJ 25 MG in SODIUM CHLORIDE 0.9% 50 ML IV STA (00:30)
[2017-12-08] MEDS ORDERED: KETOROLAC 60 MG/2 ML VIAL IVP STA (00:30)
[2017-12-08] MEDS ORDERED: FAMOTIDINE 20 MG in SODIUM CHLORIDE 0.9% 50 ML IV ONE (00:31)
[2017-12-08 00:45] LABS: BILIRUBIN,URINE NEGATIVE (NEGATIVE); GLUCOSE, URINE (UA) NEGATIVE (NEGATIVE); KETONES,URINE (UA) NEGATIVE (NEGATIVE); LEUKOCYTE ESTERASE, URINE NEGATIVE (NEGATIVE); NITRITE,URINE NEGATIVE (NEGATIVE); OCCULT BLOOD,URINE NEGATIVE (NEGATIVE); PROTEIN,URINE NEGATIVE (NEGATIVE); UROBILINOGEN,URINE 0.2 (NORMAL) E.U./dL (NORMAL)
[2017-12-08 00:49] LABS: CLARITY,URINE CLEAR (CLEAR)
[2017-12-08 03:26] VITALS: BP 116/81
== END 2017-12-08 03:36 | disposition home or self-care (01) ==
LOC: ED 23:06
DX: R51 Headache (principal); R06.2 Wheezing; R11.0 Nausea; R07.9 Chest pain, unspecified; E03.9 Hypothyroidism, unspecified; F17.200 Nicotine dependence, unspecified, uncomplicated
CPT/HCPCS: 36415; 70450; 71046; 80053; 81003; 83690; 83880; 84484; 85025; 85379; 93005; 94640; 96365; 96367; 96375; 99283; 99284; A9270; J2765; J7040; 81001; 87086

== ENCOUNTER 2018-05-12 13:36 | Outpatient (CLI) | payer OTHER ==
--- NOTE | 2018-05-13 09:17 | Mammography Report ---
Reason: Annual Screening Procedure Date: 05/12/2018 Accession Number: [id number] / [id number] Procedure: RUDY - Screening Mammo Dig Bilat CPT Code: FULL RESULT: EXAM: Screening Mammo Dig Bilat DATE: 05/12/2018 2:27 PM CLINICAL HISTORY: Screening encounter. History of early menses. Family history of breast cancer in the grandmother at age 65. TECHNIQUE: Bilateral CC and MLO views were obtained. COMPARISON: 05/22/2016. FINDINGS: The breasts demonstrate diffuse fatty replacement bilaterally. No suspicious masses, clustered microcalcifications, or regions of architectural distortion are identified. IMPRESSION: Negative examination RECOMMENDATION: Routine annual screening unless otherwise clinically indicated. BIRADS CATEGORY 1: Negative STANDARD QUALIFYING STATEMENTS: 1. This examination was reviewed with the aid of Computer-Aided Detection (CAD). 2. A negative or benign imaging report should not delay biopsy if clinically suspicious findings are present. Consider surgical consultation if warrented. More than 5% of cancers are not identified by imaging. 3. Dense breasts may obscure an underlying neoplasm.
== END 2018-05-12 13:37 | disposition home or self-care (01) ==
LOC: DI 13:36
PROVIDERS: ATTEND Internal Medicine
DX: Z12.31 Encounter for screening mammogram for malignant neoplasm of breast (principal); Z80.3 Family history of malignant neoplasm of breast
CPT/HCPCS: 77067

== ENCOUNTER 2018-06-03 20:44 | Outpatient (CLI) | payer OTHER | END 2018-06-03 20:45 | disposition critical access hospital (66) | LOC: EMS 20:44 | PROVIDERS: ATTEND Surgery | DX: R06.89 Other abnormalities of breathing (principal) | CPT/HCPCS: A0425; A0429 ==

== ENCOUNTER 2018-06-03 20:55 | Emergency (ER) | payer OTHER ==
[2018-06-03] MEDS ORDERED: SODIUM CHLORIDE 0.9% 1,000 ML IV STA (21:08)
[2018-06-03] MEDS ORDERED: ONDANSETRON 4 MG/2 ML VIAL IVP STA (21:08)
[2018-06-03 21:28] LABS: BASOPHILS # (AUTO) 0.1 10^3/uL (0.0-0.1); BASOPHILS % (AUTO) 0.4 %; EOSINOPHILS % (AUTO) 0.4 %; HGB - HEMOGLOBIN 13.5 g/dL (12.0-16.0); LYMPHOCYTES # (AUTO) 1.5 10^3/uL (1.5-3.5); LYMPHOCYTES % (AUTO) 12.5 %; MEAN CORPUSCULAR HGB CONC 33.9 g/dL (32.0-36.0); MEAN CORPUSCULAR VOLUME 85.6 fL (81.0-99.0); MEAN PLATELET VOLUME 8.2 fL (7.9-10.8); MONOCYTES # (AUTO) 0.7 10^3/uL (0.0-1.0); MONOCYTES % (AUTO) 6.1 %; NEUTROPHILS # (AUTO) 9.6 10^3/uL (1.5-6.6); NEUTROPHILS % (AUTO) 80.6 %; PLT - PLATELET COUNT 249 10^3/uL (130-450); RED BLOOD COUNT 4.66 10^6/uL (4.20-5.40); RED CELL DISTRIBUTION WIDTH 14.6 % (12.0-15.0); WHITE BLOOD COUNT 11.9 x10^3/uL (4.8-10.8)
[2018-06-03] MEDS ORDERED: KETOROLAC 30 MG/ML VIAL IVP STA (21:36)
[2018-06-03 21:40] LABS: ALBUMIN 3.8 g/dL (3.2-5.5); BILIRUBIN,TOTAL 0.8 mg/dL (0.2-1.0); CALCIUM 8.9 mg/dL (8.5-10.3); TOTAL PROTEIN 7.6 g/dL (6.7-8.2)
--- NOTE | 2018-06-03 21:49 | ED Physician Documentation ---
PD HPI URI - Stated complaint Stated Complaint: FEVER/N/V - Chief complaint Chief Complaint: Abd Pain - History obtained from History obtained from: Patient - History of Present Illness Timing - onset: How many days ago (3-4) Timing duration: Days (3-4) Timing details: Gradual onset Pain level max: 6 Pain level now: 4 Associated symptoms: Fever, Chills, Nasal congestion, Rhinorrhea, Dry cough, NVD (states mild nausea, vomited x 1, mild diarrhea.). No: Sore throat, Chest pain, Dyspnea Contributing factors: Sick contact, COPD / asthma. 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 , Ovarian cysts, Miscarriage(s) : Kidney stones HEENT: Chronic sinusitis, Other Psych: Depression, Post traumatic stress disorder Musculoskeletal: Osteoarthritis Derm: None - Past Surgical History Past Surgical History: Yes General: Cholecystectomy - Present Medications Home Medications: Ambulatory Orders Medication Instructions Recorded Confirmed FLUoxetine [PROzac] 80 mg ORAL DAILY 11/19/14 06/03/18 Levothyroxine [Synthroid] 175 mcg ORAL DAILY 11/19/14 06/03/18 Methocarbamol [Robaxin] 500 mg PO Q6H PRN #25 tablet 10/05/17 06/03/18 Omeprazole 20 mg PO DAILY 10/05/17 06/03/18 Albuterol Sulf [Ventolin Hfa 1 - 2 puffs INH Q4HR PRN #1 inhaler 12/08/17 06/03/18 Inhaler] Albuterol Sulf [Ventolin Hfa 1 - 2 puffs INH Q4HR PRN #1 inhaler 06/03/18 Inhaler] Loratadine 1 cap PO DAILY 06/03/18 06/03/18 predniSONE [Deltasone] 10 mg PO [id number] #42 tab 06/03/18 - Allergies Allergies/Adverse Reactions: Allergies Allergy/AdvReac Type Severity Reaction Status Date / Time No Known Drug Allergies Allergy Verified 06/03/18 21:03 - Social History Does the pt smoke?: Yes Smoking Status: Current every day smoker Does the pt drink ETOH?: Yes Does the pt have substance abuse?: No - Immunizations Immunizations are current?: Yes - POLST Patient has POLST: No PD ED PE NORMAL - Vitals Vital signs reviewed: Yes - General General: Alert and oriented X 3, No acute distress, Well developed/nourished - HEENT HEENT: PERRL, Moist mucous membranes - Neck Neck: Supple, no meningeal sign - Cardiac Cardiac: RRR, Strong equal pulses - Respiratory Respiratory: No respiratory distress, Other (Wheezing, mainly on the right side) - Abdomen Abdomen: Soft, Non tender, Non distended - Derm Derm: Warm and dry, No rash - Extremities Extremities: No edema, No calf tenderness / cord - Neuro Neuro: Alert and oriented X 3 - Psych Psych: Normal mood, Normal affect Results - Vitals Vitals: Vital Signs - 24 hr 06/03/18 06/03/18 06/03/18 20:57 21:56 22:03 Temperature 37.9 C H Heart Rate 114 H 107 H 100 Respiratory 20 18 18 Rate Blood Pressure 138/77 H 140/72 H O2 Saturation 94 92 06/03/18 06/04/18 23:05 00:45 Temperature 36.9 C Heart Rate 89 94 Respiratory 20 20 Rate Blood Pressure 131/72 H 120/59 L O2 Saturation 94 94 Oxygen O2 Source Room air - Labs Labs: Laboratory Tests 06/03/18 06/03/18 06/03/18 21:05 21:15 21:15 WBC 11.9 H RBC 4.66 Hgb 13.5 Hct 39.9 MCV 85.6 MCH 29.0 MCHC 33.9 RDW 14.6 Plt Count 249 MPV 8.2 Neut # (Auto) 9.6 H Lymph # (Auto) 1.5 [place] # (Auto) 0.7 Eos # (Auto) 0.0 Baso # (Auto) 0.1 Absolute Nucleated RBC 0.00 Nucleated RBC % 0.0 Sodium 136 Potassium 4.1 Chloride 103 Carbon Dioxide 23 Anion Gap 10.0 BUN 15 Creatinine 1.0 Estimated GFR (MDRD) 58 L Glucose 126 H Calcium 8.9 Total Bilirubin 0.8 AST 17 ALT 28 Alkaline Phosphatase 113 Total Protein 7.6 Albumin 3.8 Globulin 3.8 Albumin/Globulin Ratio 1.0 Lipase 24 Influenza A (Rapid) Negative Influenza B (Rapid) Negative - Rads (name of study) Chest x-ray Radiology: Prelim report reviewed, EMP read contemporaneously, See rad report (Findings suggestive of reactive air airway disease and/or viral bronchiolitis. No evidence of superimposed pneumonia) PD MEDICAL DECISION MAKING - ED course Complexity details: reviewed results, re-evaluated patient, considered differential, d/w patient ED course: 52-year-old female presents to the emergency department with what appears to be a viral syndrome. She is well-appearing, nontoxic. Fever broke in the emergency department and feels better. Feels better after nebulizer treatment as well. Will place on steroids for home. No evidence of sepsis. Patient counseled regarding signs and symptoms for which I believe and urgent re- evaluation would be necessary. Patient with good understanding of and agreement to plan and is comfortable going home at this time This document was made in part using voice recognition software. While efforts are made to proofread this document, sound alike and grammatical errors may occur. Departure - Departure Disposition: 01 Home, Self Care Clinical Impression: Viral syndrome, Wheezing Fever Qualifiers: Fever type: unspecified Qualified Code(s): R50.9 - Fever, unspecified Condition: Stable Instructions: ED Viral Syndrome Follow-Up: your,doctor in 3 days [Other] Prescriptions: Albuterol Sulf [Ventolin Hfa Inhaler] 1 - 2 puffs INH Q4HR PRN #1 inhaler PRN Reason: Shortness Of Air/Wheezing predniSONE [Deltasone] 10 mg PO [id number] #42 tab Comments: Drink plenty of fluids at home. Continue your albuterol. Return if you worsen. You should be feeling better in the next 2-3 days. Discharge Date/Time: 06/04/18 00:46
[2018-06-03] MEDS ORDERED: IPRATROPIUM/ALBUTEROL 3 ML NEB INH STA (21:51)
--- NOTE | 2018-06-03 22:18 | XRAY Report ---
Reason: fever, cough Procedure Date: 06/03/2018 Accession Number: [id number] / [id number] Procedure: XR - Chest 2 View X-Ray CPT Code: 56340 FULL RESULT: EXAM: CHEST RADIOGRAPHY EXAM DATE: 06/03/2018 09:50 PM. CLINICAL HISTORY: Fever, cough. COMPARISON: CHEST 2 VIEW 12/08/2017 12:16 AM. TECHNIQUE: 2 views. FINDINGS: Lungs/Pleura: There is mild diffuse airway thickening and peribronchial interstitial opacity. No lung consolidation. There is no effusion or pneumo thorax. Mediastinum: Heart and mediastinal contours are unremarkable. Other: Right upper quadrant clips indicate prior cholecystectomy. IMPRESSION: Findings suggestive of reactive airways disease and/or viral bronchiolitis. No evident superimposed pneumonia. RADIA
[2018-06-04 00:46] VITALS: BP 120/59
== END 2018-06-04 00:46 | disposition home or self-care (01) ==
LOC: EDUNIT# → ED 20:55
DX: B34.9 Viral infection, unspecified (principal); F17.200 Nicotine dependence, unspecified, uncomplicated; R06.2 Wheezing
CPT/HCPCS: 36415; 71046; 80053; 83690; 85025; 87275; 87276; 93005; 96361; 96374; 96375; 99284

== ENCOUNTER 2023-01-19 09:48 | Emergency (ER) | payer MEDICAID ==
[2023-01-19 10:34] LABS: BASOPHILS % (AUTO) 0.2 %; EOSINOPHILS # (AUTO) 0.2 10^3/uL (0.0-0.7); EOSINOPHILS % (AUTO) 2.5 %; HCT - HEMATOCRIT 46.3 % (37.0-47.0); HGB - HEMOGLOBIN 14.7 g/dL (12.0-16.0); LYMPHOCYTES # (AUTO) 1.5 10^3/uL (1.5-3.5); LYMPHOCYTES % (AUTO) 22.5 %; MEAN CORPUSCULAR HEMOGLOBIN 28.1 pg (27.0-31.0); MEAN CORPUSCULAR HGB CONC 31.7 g/dL (32.0-36.0); MEAN CORPUSCULAR VOLUME 88.5 fL (81.0-99.0); MEAN PLATELET VOLUME 9.9 fL (7.9-10.8); MONOCYTES # (AUTO) 0.4 10^3/uL (0.0-1.0); MONOCYTES % (AUTO) 5.4 %; NEUTROPHILS # (AUTO) 4.5 10^3/uL (1.5-6.6); NEUTROPHILS % (AUTO) 69.1 %; PLT - PLATELET COUNT 234 10^3/uL (130-450); RED BLOOD COUNT 5.23 10^6/uL (4.20-5.40); RED CELL DISTRIBUTION WIDTH 13.4 % (12.0-15.0); WHITE BLOOD COUNT 6.5 x10^3/uL (4.8-10.8)
[2023-01-19 10:50] LABS: ALBUMIN/GLOBULIN RATIO 1.5 (1.0-2.2); BILIRUBIN,TOTAL 0.4 mg/dL (0.2-1.0); POTASSIUM 4.3 mmol/L (3.5-4.5); TOTAL PROTEIN 6.7 g/dL (6.4-8.9)
--- NOTE | 2023-01-19 11:16 | ED Physician Documentation ---
History of Present Illness - Stated complaint Stated Complaint: PX - Chief complaint Chief Complaint: Abd Pain - Additonal information Additional information: 57-year-old female presents to the emergency department for evaluation of 5 days urinary urgency, frequency and feeling of incomplete bladder emptying. She also has associated right flank and CVA tenderness. She believes she has a kidney infection. She reports subjective fevers and chills. No nausea vomiting or diarrhea. Was recently hospitalized at [facility] and received antibiotics for what they thought to be pneumonia. Reprots she was in critical condition. uncertain what abx she received Denies any history of hypertension or diabetes. Meds: Omeprazole, fluoxetine, Wegovy (weight loss), levothyroxine Review of Systems Constitutional: reports: Chills, Myalgias Throat: reports: Reviewed and negative Cardiac: reports: Reviewed and negative Respiratory: reports: Reviewed and negative GI: reports: Abdominal Pain : reports: Frequency. denies: Dysuria Skin: reports: Reviewed and negative PD PAST MEDICAL HISTORY - Past Medical History Past Medical History: Yes Respiratory: COPD Endocrine/Autoimmune: HyPOthyroidism GI: GERD : Frequency Psych: Depression - Past Surgical History Past Surgical History: No - Present Medications Home Medications: Ambulatory Orders Medication Instructions Recorded Confirmed HYDROcod/ACETAM 5/325 [[place] 5/325] 1 tablet PO BID PRN #10 tablet 01/19/23 - Allergies Allergies/Adverse Reactions: Allergies Allergy/AdvReac Type Severity Reaction Status Date / Time latex Allergy Hives Verified 01/19/23 10:00 vaccine adjuvant system, Allergy Hives Verified 01/19/23 10:00 AS01B liposomal [From Shingrix (PF)] varicella-zoster virus Allergy Hives Verified 01/19/23 10:00 glycoprotein E, recombinant [From Shingrix (PF)] - Social History Does the pt smoke?: Yes Smoking Status: Current every day smoker Does the pt drink ETOH?: Yes Does the pt have substance abuse?: No PD ED PE NORMAL - General General: Alert and oriented X 3, No acute distress, Well developed/nourished (obese) - HEENT HEENT: Atraumatic - Neck Neck: Supple, no meningeal sign - Cardiac Cardiac: RRR, No murmur - Respiratory Respiratory: No respiratory distress - Abdomen Abdomen: Normal bowel sounds, Soft. No: Non tender (Tenderness with palpation and percussion to the right CVA region. Mild right flank tenderness. No guarding or rebound.) - Derm Derm: Normal color, Warm and dry, No rash - Extremities Extremities: No deformity - Neuro Neuro: Alert and oriented X 3 Eye Opening: Spontaneous Motor: Obeys Commands Verbal: Oriented GCS Score: 15 Results - Vitals Vitals: Vital Signs - 24 hr 01/19/23 09:55 Temperature 36.5 C Heart Rate 93 Respiratory 14 Rate Blood Pressure 144/80 H O2 Saturation 97 Oxygen O2 Source Room air - Labs Labs: Laboratory Tests 01/19/23 01/19/23 01/19/23 10:30 10:30 11:05 WBC 6.5 RBC 5.23 Hgb 14.7 Hct 46.3 MCV 88.5 MCH 28.1 MCHC 31.7 L RDW 13.4 Plt Count 234 MPV 9.9 Neut # (Auto) 4.5 Lymph # (Auto) 1.5 [place] # (Auto) 0.4 Eos # (Auto) 0.2 Baso # (Auto) 0.0 Absolute Nucleated RBC 0.00 Nucleated RBC % 0.0 Sodium 138 Potassium 4.3 Chloride 107 Carbon Dioxide 26 Anion Gap 5.0 L BUN 13 Creatinine 1.0 Estimated GFR (MDRD) 57 L Glucose 106 H Calcium 9.0 Total Bilirubin 0.4 AST 13 ALT 19 Alkaline Phosphatase 94 Total Protein 6.7 Albumin 4.0 Globulin 2.7 Albumin/Globulin Ratio 1.5 Lipase 22 Urine Color YELLOW Urine Clarity CLEAR Urine pH 6.0 Ur Specific [place] 1.015 Urine Protein NEGATIVE Urine Glucose (UA) NEGATIVE Urine Ketones NEGATIVE Urine Occult Blood NEGATIVE Urine Nitrite NEGATIVE Urine Bilirubin NEGATIVE Urine Urobilinogen 0.2 (NORMAL) Ur Leukocyte Esterase NEGATIVE Ur Microscopic Review NOT INDICATED Urine Culture Comments NOT INDICATED - Rads (name of study) Ct abd/pelvis w Relevant Findings:: Final report received (Negative for hydronephrosis, kidney or ureter stones. Normal-appearing kidneys. Normal appendix. Incidental finding of previous cholecystectomy and degenerative changes L5-S1) PD Medical Decision Making - ED course Complexity details: reviewed results, re-evaluated patient, d/w patient ED course: 57-year-old female presents emergency department for evaluation of 5 days urinary urgency, frequency and right flank pain. She endorses subjective fevers and chills though no measured temperature elevation. She is concerned she could have pyelonephritis. On exam her vital signs show no fever tachycardia or hypotension. Her exam is consistent with percussion tenderness over the right CVA and flank region. There was no rash suggestive of shingles Routine CBC, electrolytes and urinalysis were obtained. Per my interpretation there were no acute worrisome findings. Specifically no leukocytosis, anemia or worrisome electrolyte derangement. Her urine is without any findings to suggest infection or even occult hematuria. As such we will obtain a CT of the abdomen to evaluate for the possibility of occult renal or ureter stones, occult appendicitis or other occult surgical abdominal pathology. 1400: CT of the abdomen pelvis was without acute findings to suggest renal colic, ureter colic, concerning findings within the gallbladder or liver, no findings of pneumonia in the lower posterior lung perdomo. Here in the ER the patient was given a single dose of Toradol which she found mildly helpful. Over the last several days she is taken nothing at home for pain. I making the recommendation for Motrin and Tylenol at home with a limited amount of [place] being sent to [facility] pharmacy. Clinically there is no acute emergent exam findings but the patient has an unclear cause for her pain. Is a dvised prompt follow-up with her PCP. The usual emergent return precautions was discussed I am prescribing a short course of short-acting opioid pain medication for this patient. 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 I have discussed that the opioids are for short term therapy only, and will not be refilled from the ED. Departure - Departure Disposition: 01 Home, Self Care Clinical Impression: Right flank pain Condition: Stable Record reviewed to determine appropriate education?: Yes Prescriptions: HYDROcod/ACETAM 5/325 [[place] 5/325] 1 tablet PO BID PRN #10 tablet PRN Reason: Pain Comments: Irene you are seen today in the emergency department for 5 days of pain in your right kidney area and right flank region. Your labs including CBC, electrolytes and urinalysis were all essentially normal without worrisome findings or findings to suggest infection. A CT of the abdomen was also completed and showed no findings of kidney stones, ureter stones hydronephrosis appendicitis or problems with the gallbladder or liver. At this time its not clear what the cause of your pain is. I recommend that you take Tylenol 500 mg 2-3 times a day for discomfort and alternate with 600 and Motrin taken with food also 2-3 times a day. For more severe pain limited amount of [place] has been prescribed. Please follow very closely with your primary care doctor to discuss this ED visit. Return to the ER for fevers, uncontrolled vomiting, black or bloody stools or obvious blood in your urine. I am prescribing a short course of narcotic pain medication for you. These are potentially dangerous and addictive medications that should be used carefully. These medications may constipate you. Take an hssg-pxu-yqujzph stool softener (docusate) twice daily with plenty of water while taking these medications. If you go 24 hours without a bowel movement, take omtt-waf-[id number] miralax, per package instructions. Do not drink or drive while taking these medications. If you received narcotic or sedating medications while in the emergency department, do not drive for 24 hours. Store this medication in a safe, secure place and out of reach of children. It is a violation of federal law to give or sell this medication to another person or to use in a manner other than prescribed. The ED will not refill narcotic prescriptions, including prescriptions lost or stolen. To dispose of unwanted medications: 1. [facility] at [address] in [place] has a medication drop box. They accept prescription medications (in pill form) Friday through Friday 9:00 a.m. to 5:00 p.m. 2. The [facility] [employer] accepts prescription medications (in pill form only) for disposal year round. Call for more inf ormation. 3. Contact the [facility] for the next [facility] sponsored prescription drug collection event. , [phone], or [phone]; Note that many narcotic pain relievers also contain Tylenol/acetaminophen. Please ensure that your total dose of acetaminophen from all sources does not exceed 3 g (3000 mg) per day. Forms: PCP List
[2023-01-19 11:35] LABS: BILIRUBIN,URINE NEGATIVE (NEGATIVE); GLUCOSE, URINE (UA) NEGATIVE (NEGATIVE); KETONES,URINE (UA) NEGATIVE (NEGATIVE); LEUKOCYTE ESTERASE, URINE NEGATIVE (NEGATIVE); NITRITE,URINE NEGATIVE (NEGATIVE); OCCULT BLOOD,URINE NEGATIVE (NEGATIVE); PROTEIN,URINE NEGATIVE (NEGATIVE); UROBILINOGEN,URINE 0.2 (NORMAL) E.U./dL (NORMAL)
[2023-01-19 11:36] LABS: CLARITY,URINE CLEAR (CLEAR)
[2023-01-19] MEDS ORDERED: KETOROLAC 30 MG/ML VIAL IVP STA (12:12)
[2023-01-19] MEDS ORDERED: iohexoL-300 100 ML VIAL IVP ONE (12:48)
--- NOTE | 2023-01-19 13:24 | CT Report ---
PROCEDURE: ABDOMEN/PELVIS W INDICATIONS: right flank pain; ? renal colic CONTRAST: 100ml omni 300 TECHNIQUE: After the administration of IV contrast, 5 mm thick sections acquired from the diaphragms to the symp hysis. 5 mm thick coronal and sagittal reformats were acquired. For radiation dose reduction, the f ollowing was used: automated exposure control, adjustment of mA and/or kV according to patient size. COMPARISON: None. FINDINGS: Image quality: This study is limited by body habitus. Lung bases and heart: Unremarkable. Liver: No solid mass. Gallbladder and biliary tree: Cholecystectomy. Spleen: No splenomegaly. Pancreas: No pancreatic ductal dilation. Adrenals: No adrenal nodule. Kidneys and ureters: No hydronephrosis. No renal cystic lesion which requires follow up. No solid mas s. In this patient with this given history, scrutiny is given to kidney stones. The limits of this po stcontrast study. No kidney stones are seen. Bowel and peritoneum: No bowel distension. No pathologic free fluid. A normal appendix is seen. Lymph nodes: No central or retroperitoneal adenopathy. Vessels: No infrarenal aortic aneurysm. PELVIS Reproductive organs: The uterus demonstrates an unremarkable appearance for age. No adnexal masses ar e seen. Bladder: No abnormal wall thickening, accounting for underdistension. Pelvic lymph nodes: No pelvic adenopathy by size criteria. Bones: No aggressive osseous abnormality. Focal L5-S1 degenerative change is seen. Milder degenerativ e changes are seen elsewhere. Other: No significant ventral or inguinal hernia. IMPRESSION: Negative for hydronephrosis. No large renal stones can be seen on this postcontrast study. Normal-appearing kidneys. Normal appendix. Additional findings: Cholecystectomy Focal L5-S1 degenerative change Reviewed by: Jeffrey Kaiser MD on 01/19/2023 12:23 PM [place] Approved by: Jeffrey Kaiser MD on 01/19/2023 12:[address] [facility] Station ID: [id number]
[2023-01-19 14:13] VITALS: BP 124/72; O2SAT 95
== END 2023-01-19 14:13 | disposition home or self-care (01) ==
LOC: EDBD → MERGE 09:48 → ED 09:48
DX: R10.9 Unspecified abdominal pain (principal); J44.9 Chronic obstructive pulmonary disease, unspecified; E03.9 Hypothyroidism, unspecified; F17.200 Nicotine dependence, unspecified, uncomplicated
CPT/HCPCS: 36415; 74177; 80053; 81003; 83690; 85025; 96374; 99284; Q9967; 81001; 87086

== ENCOUNTER 2023-07-26 14:19 | Outpatient (CLI) | payer MEDICAID | END 2023-07-26 23:59 | disposition short-term general hospital (02) | LOC: EMS 14:19 | DX: R06.02 Shortness of breath (principal); R53.83 Other fatigue; R53.1 Weakness | CPT/HCPCS: A0425; A0427; A0999 ==

== ENCOUNTER 2025-03-07 00:37 | Inpatient (IN) ==
--- NOTE | 2025-03-07 00:46 | ED Physician Documentation ---
PD HPI URI Stated complaint Stated Complaint: SOA Chief complaint Chief Complaint: Resp History obtained from History obtained from: Patient and EMS (Medics noted the patient to be having partial sense dyspnea with tachypnea and work of breathing and saturations in the low 80s on room air which improved with nebulizer and facemask.) History of Present Illness Timing - onset: Today (Patient states she has had having cough with worst breathing and feeling of fever and chills just this past day. No vomiting or diarrhea. No sore throat. 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 Gets respiratory distress promptly with any respiratory infections.) Recently seen: Clinic (Last saw her sql report writer at the [place] a few months ago. She does have a inflammatory type lung disease and she states biopsies have sh own crystal deposits in the parenchyma.) and Admitted (It looks like most recent hospitalization was at [facility] in August due to a similar abrupt worsened breathing and she states she was there a week.) Additional information Additional information: The [place] system is not accessible to me by medical records and they do not have medical records attendance overnight. We can try to get pulmonary results tomorrow. Meds/Allgy Home Medications Ambulatory Orders Medication Instructions Recorded Confirmed fluoxetine 10 mg capsule 80 mg ORAL DAILY 11/19/14 levothyroxine 125 mcg tablet 175 mcg ORAL DAILY 11/03/24 omeprazole 20 mg tablet,delayed 20 mg PO DAILY 8 11/03/24 release albuterol sulfate 90 mcg/actuation 1 - 2 puff inhalati on Q4HR PRN 06/03/18 11/03/24 aerosol inhaler (Ventolin HFA) Shortness Of Air/Wheezi ng ##1 dexamethasone 4 mg tablet 4 mg PO DAILY #5 tabs 08/30/24 diphenhydramine HCl 25 mg capsule 25 mg PO Q4-6H PRN C ough #30 caps 05/18/19 08/30/24 (Banophen) hydrocodone 5 mg-acetaminophen 325 1 tab PO BID PRN Pa in #10 tabs 01/19/23 11/03/24 mg tablet loratadine 10 mg tablet mg PO 01/31/24 11/03/24 benzonatate 200 mg capsule 200 mg PO TID PRN cough #30 caps 11/03/24 11/03/24 sulfamethoxazole 800 1 tab PO BID 5 days #10 tabs 03/03/25 03/03/25 mg-trimethoprim 160 mg tablet Allergies Allergies Allergy/AdvReac Type Severity Reaction Status Date / Time semaglutide (From Wegovy) Allergy Severe burning of Verified 11/03/24 09:30 the face latex Allergy Hives Verified 11/03/24 09:30 vaccine adjuvant system, Allergy Hives Verified 11/03/24 09:30 AS01B liposomal (From Shingrix (PF)) varicella-zoster virus Allergy Hives Verified 11/03/24 09:30 glycoprotein E, recombinant (From Shingrix (PF)) PFSH Active Problems All Active Problems (Updated 03/07/25 @ 03:04 by Dionte Alcala MD) Interstitial lung abnormality (MP) (Acute) COPD with acute exacerbation (Acute) Hypoxia (Acute) Acute dyspnea (Acute) Acute lower respiratory infection (Acute) Dehydration (Acute) Hypothyroidism (Chronic) Elevated blood pressure reading in office without diagnosis of hypertension (Acute) Dysuria (Acute) Otitis externa (Acute) Cough (Acute) Recurrent sinusitis (Acute) Medical History Medical History (Updated 03/07/25 @ 03:04 by Dionte Alcala MD) Cough Alcohol intoxication Social History Social History Smoking Status: Current every day smoker Number of Years Smoked: 30 How many cigarettes a day do you smoke? (20 cigarettes=1 Pk): 5 Living arrangement: At home Do you feel safe in your home environment?: Yes History of physical, verbal, emotional, or financial abuse?: No Frequency: Occasional POLST Patient has POLST: No Exam Exam Vital Signs: Vital Signs x48h Temp Pulse Resp BP Pulse Ox O2 Flow Rate 03/07/25 02:38 103 H 20 107/62 100 10 03/07/25 02:05 101 H 22 99/41 L 98 10 03/07/25 01:11 10 03/07/25 01:00 118 H 28 H 12 03/07/25 00:51 38.9 C H 123 H 30 H 139/70 H 95 10 Constitutional normal general appearance, distress noted (moderate), (severe) and (respiratory) and abnormal body habitus (obese) and (overweight) HENMT TMs normal bilaterally, oral mucous membranes abnormal (dry) and oropharynx normal Neck/C-Spine supple and no meningeal signs Lymph no lymphadenopathy noted Chest palpation of chest normal Respiratory breath sounds equal bilaterally, abnormal respiratory effort (labored), auscultation abnormal (bronchial breath sounds), wheezing noted (expiratory wheezes), no rales and use of accessory muscles noted (Moderate accessory muscle use and partial sentence dyspnea on initial prese) Cardiovascular heart rate abnormal (tachycardic), regular rhythm noted, no murmur and no edema Gastrointestinal abdomen soft to palpation, nontender to palpation, nontender to percussion and nondistended Neurology no focal motor deficit noted and no sensory deficits noted Psychiatry mental status grossly normal, oriented x3, thought process normal, cooperative and affect abnormality noted (anxious) Skin skin color normal Results Vitals Vitals: Vital Signs - 24 hr 03/07/25 00:51 03/07/25 00:59 03/07/25 01:00 Temperature 38.9 C H Temperature Source Temporal Artery Scan Pulse Rate 123 H 118 H Respiratory Rate 30 H 28 H Blood Pressure 139/70 H O2 Saturation 95 Oxygen Delivery Method O2 Source Non-rebreather mask Non-rebreather mask If not protocol: Oxygen Flow, liters/minute 10 12 Pain Intensity 9 8 03/07/25 01:11 03/07/25 02:05 03/07/25 02:38 Temperature Temperature Source Pulse Rate 101 H 103 H Respiratory Rate 22 20 Blood Pressure 99/41 L 107/62 O2 Saturation 98 100 Oxygen Delivery Method Non-Rebreather O2 Source Non-rebreather mask Non-rebreather mask If not protocol: Oxygen Flow, liters/minute 10 10 10 Pain Intensity 5 5 Oxygen O2 Source Non-rebreather mask Labs Labs: Laboratory Tests 03/07/25 03/07/25 00:49 01:10 WBC 15.0 H RBC 4.98 Hgb 13.4 Hct 43.5 MCV 87.3 MCH 26.9 L MCHC 30.8 L RDW 14.3 Plt Count 220 MPV 10.0 Neut # (Auto) 13.0 H Lymph # (Auto) 1.3 L [place] # (Auto) 0.6 Eos # (Auto) 0.1 Baso # (Auto) 0.0 Absolute Nucleated RBC 0.00 Nucleated RBC % 0.0 Sodium 137 Potassium 4.1 Chloride 107 Carbon Dioxide 23 Anion Gap 7.0 BUN 18 Creatinine 1.2 Estimated GFR (MDRD) 46 L Glucose 152 H Calcium 8.6 Magnesium 1.8 Total Bilirubin 0.4 AST 16 ALT 14 Alkaline Phosphatase 101 Total Protein 6.6 Albumin 3.9 Globulin 2.7 Albumin/Globulin Ratio 1.4 Lipase 20 Procalcitonin Immunoas 0.10 Nasal Adenovirus (PCR) NOT DETECTED Nasal B. parapertussis DNA (PCR) NOT DETECTED Nasal Coronavir 229E PCR NOT DETECTED Nasal Coronavir HKU1 PCR NOT DETECTED Nasal Coronavir NL63 PCR NOT DETECTED Nasal Coronavir OC43 PCR NOT DETECTED Nasal Enterovir/Rhinovir PCR NOT DETECTED Nasal Influenza B PCR NOT DETECTED Nasal Influenza A PCR NOT DETECTED Nasal Parainfluen 1 PCR NOT DETECTED Nasal Parainfluen 2 PCR NOT DETECTED Nasal Parainfluen 3 PCR NOT DETECTED Nasal Parainfluen 4 PCR NOT DETECTED Nasal RSV (PCR) NOT DETECTED Nasal B.pertussis DNA PCR NOT DETECTED Nasal C.pneumoniae (PCR) NOT DETECTED Phil Human Metapneumo PCR NOT DETECTED Nasal M.pneumoniae (PCR) NOT DETECTED Nasal SARS-CoV-2 (PCR) NOT DETECTED PD Medical Decision Making ED course Complexity details: reviewed results (Respiratory viral panel is negative. She did get ill just today in the past 12 to 24 hours with a high fever so maybe early for positive results. Consider influenza or rhinovirus and may want to recheck respiratory panel in a day. Otherwise presumed bacterial.), re- evaluated patient (She did have notable work of breathing but with repeat nebulizer treatments here she is more relaxed. She does not appear to be tiring. She is able to talk in complete sentences and has decreased work of breathing. Oxygen need is decreasing from facemask to nasal cannula and is currently at 5 L.), considered differential (The patient has a history of interstitial lung abnormality sounds treated as COPD with inhaled steroids and bronchodilators. She is not on oral steroids. She states she does get respiratory distress easily with infections and has been hospitalized with them typically. She does have fever.), d/w patient, d/w spa consultant (Hospitalist) and other (The patient states she had sql report writer in [facility] but currently her sql report writer is through the [place]. She did request transfer to the ER if possible but the [place] does not accept transfers overnight and there would be a low probability Friday morning anyway. She is okay with admission here.) Procedural Risk Factors Specific to Patient: I did talk with the patient about CODE STATUS. She states her sql report writer had told her it would be unlikely for her to get off of the ventilator if she were to be intubated so she states DNI and DNR. Critical Care Critical Care Provided: Yes Time(min): 45 Comments: Respiratory distress with hypoxia and concern for potential BiPAP. Multiple breathing treatments. Supplemental oxygen and reassessment. Discussion about CODE STATUS. Time Includes: Direct patient care, Reassess patient, Document care, Coordinate care and Medical consult Data interpretation: Labs and Pulse ox Discharge Plan Discharge Patient Disposition: 66 [facility] DC/Xfer Condition: Stable Clinical Impression: Acute lower respiratory infection, Acute dyspnea, Hypoxia, COPD with acute exacerbation, Interstitial lung abnormality (MP)
[2025-03-07] MEDS: BUDESONIDE 0.5 MG/2 ML NEB INH STA (00:59)
[2025-03-07] MEDS: KETOROLAC 15 MG/ML VIAL IVP STA (00:59)
[2025-03-07] MEDS: IPRATROPIUM/ALBUTEROL 3 ML NEB INH STA (00:59)
[2025-03-07] MEDS: ACETAMINOPHEN 1,000 MG/100 ML 1,000 MG/100 ML BAG IV ONE (01:01)
[2025-03-07] MEDS: SODIUM CHLORIDE 0.9% 1,000 ML IV STA ×2 (01:01→03:25)
--- NOTE | 2025-03-07 01:15 | XRAY Report ---
PROCEDURE: XR Chest 1V INDICATIONS: cough and dyspnea TECHNIQUE: One view of the chest was acquired. COMPARISON: 06/03/2018 FINDINGS AND IMPRESSION: Mild to moderate diffuse peribronchial thickening, likely atypical infection. Differential includes edema. No airspace consolidation or pleural effusion on the single view study. Low lung volumes. The far right costophrenic angle is not included on the study. Heart size is at the upper limit of normal. Degenerative osseous changes. Reviewed by: Campos Gee MD on 03/07/2025 1:12 AM PST Approved by: Campos Gee MD on 03/07/2025 1:12 AM PST Station ID: [id number]
[2025-03-07 01:17] LABS: HCT - HEMATOCRIT 43.5 % (37.0-47.0); HGB - HEMOGLOBIN 13.4 g/dL (12.0-16.0); MEAN PLATELET VOLUME 10.0 fL (7.9-10.8); NRBC ABSOLUTE COUNT (AUTO) 0.00 x10^3/uL; NUCLEATED RED BLOOD CELLS AUTO 0.0 /100WBC; PLT - PLATELET COUNT 220 10^3/uL (130-450); RED CELL DISTRIBUTION WIDTH 14.3 % (12.0-15.0)
--- OUTSIDE RECORDS SUMMARY | 2025-03-07 01:21 | EXTERNAL MEDICAL SUMMARY RPT | Continuity of Care Document ---
Author Organization [place] Address [address] [place] [id number] Phone Allergies and Intolerances date description facility reaction severity 2024-11-03 10:00 [id number]^latex^^latex ^^allergy.id [facility] Hives (no severity) 2024-11-03 10:00 [id number]^varicella-zo ster virus glycoprotein E, recombinant^^From Shingrix (PF)^[facility] 2024-11-03 10:00 [id number]^vaccine adjuvant system, AS01B liposomal^^From Shingrix (PF)^^[facility] 2024-11-03 10:00 [id number]^semaglutide^ ^From [facility]^^allergy.id [facility] burning of the face (no severity) Problems date description facility 2025-03-03 09:37 [facility], [facility] 2025-03-03 09:37 [facility] 2025-03-03 09:37 [facility] 2025-03-03 09:37 Painful micturition, unspecifie d [facility] 2025-03-03 09:42 Hypothyroidism, unspecified [facility] 2025-03-03 09:42 Dehydration [facility] 2025-03-03 09:42 [facility]uria [facility] 2025-03-04 00:03 Hypothyroidism, unspecified [facility] 2025-03-04 00:03 [facility]hydration [facility] 2025-03-04 00:03 [facility]ysuria [facility] Results/Labs test date facility value unit notes Result panel 1 CUL, URINE 2025-03-03 09:44 [facility] (missing) (missing) (missing) CEFAZOLIN 2025-03-03 09:44 [facility] >16 (missing) (missing) NITROFURANTOIN 2025-03-03 09:44 [facility] >64 (missing) (missing) TETRACYCLINE 2025-03-03 09:44 [facility] >8 (missing) (missing) CIPROFLOXACIN 2025-03-03 09:44 [facility] <=0.25 (missing) (missing) ERTAPENEM 2025-03-03 09:44 [facility] <=0.25 (missing) (missing) LEVOFLOXACIN 2025-03-03 09:44 [facility] <=0.5 (missing) (missing) MEROPENEM 2025-03-03 09:44 [facility] <=0.5 (missing) (missing) TRIMETHOPRIM/SULFAM ETHOXAZOLE 2025-03-03 09:44 [facility] <=0.5/9.5 (missing) (missing) CEFEPIME 2025-03-03 09:44 [facility] <=1 (missing) (missing) CEFTRIAXONE 2025-03-03 09:44 [facility] <=1 (missing) (missing) AMPICILLIN/SULBACTA M 2025-03-03 09:44 [facility] <=1/0.5 (missing) (missing) AZTREONAM 2025-03-03 09:44 [facility] <=2 (missing) (missing) GENTAMICIN 2025-03-03 09:44 [facility] <=2 (missing) (missing) TOBRAMYCIN 2025-03-03 09:44 [facility] <=2 (missing) (missing) PIPERACILLIN/TAZOBA CTAM 2025-03-03 09:44 [facility] <=2/4 (missing) (missing) AMPICILLIN 2025-03-03 09:44 [facility] <=4 (missing) (missing) AMIKACIN 2025-03-03 09:44 [facility] <=8 (missing) (missing) CUL, URINE 2025-03-03 09:44 [facility] 100>100,000 CFU/mL (missing) (missing) NITROFURANTOIN 2025-03-03 09:44 [facility] 32 (missing) (missing) CEFAZOLIN 2025-03-03 09:44 [facility] 4 (missing) (missing) AMPICILLIN/SULBACTA M 2025-03-03 09:44 [facility] 4/2 (missing) (missing) AMPICILLIN 2025-03-03 09:44 [facility] 8 (missing) (missing) CUL, URINE 2025-03-03 09:44 [facility] Beta-lactamase. Isolates that are initially susceptible may (missing) (missing) CUL, URINE 2025-03-03 09:44 [facility] GNRGRAM NEGATIVE SOTERO TO BE FURTHER IDENTIFIED (missing) (missing) CUL, URINE 2025-03-03 09:44 [facility] IDMIC.1ORG 1 ID/CANDI COM* (missing) (missing) CUL, URINE 2025-03-03 09:44 [facility] IDMIC.2ORG 2 ID/CANDI COM* (missing) (missing) CUL, URINE 2025-03-03 09:44 [facility] Isolates of Enterobacter, Citrobacter, and Serratia may (missing) (missing) CUL, URINE 2025-03-03 09:44 [facility] ORG.1PRELIM ORG ID* (missing) (missing) CUL, URINE 2025-03-03 09:44 [facility] ORG.2PRELIM ORG ID* (missing) (missing) CUL, URINE 2025-03-03 09:44 [facility] PPROPROTEUS SPECIES TO BE FURTHER IDENTIFIED (missing) (missing) O:PROMIR 2025-03-03 09:44 [facility] PROMIRPROTEUS MIRABILISPROTEUS MIRABILIS (missing) (missing) CUL, URINE 2025-03-03 09:44 [facility] Pending (missing) (missing) O:SERFON 2025-03-03 09:44 [facility] SERFONSERRATIA FONTICOLASERRATIA FONTICOLA (missing) (missing) CUL, URINE 2025-03-03 09:44 [facility].1ORG 1 CC* (missing) (missing) CUL, URINE 2025-03-03 09:44 [facility].2ORG 2 CC* (missing) (missing) CUL, URINE 2025-03-03 09:44 [facility] UCC.6COLONY COUNT (missing) (missing) CUL, URINE 2025-03-03 09:44 [facility] YIDENTIFICATION AND SENSITIVITIES TO FOLLOW (missing) (missing) CUL, URINE 2025-03-03 09:44 [facility] become resistant within 3 to 4 days of initiation of (missing) (missing) CUL, URINE 2025-03-03 09:44 [facility] develop resistance during prolonged therapy with third (missing) (missing) CUL, URINE 2025-03-03 09:44 [facility] generation cephalosporins as a result of depression of AmpC (missing) (missing) CUL, URINE 2025-03-03 09:44 [facility] therapy. (missing) (missing) Result panel 2 THYROID STIMULATING HORMONE 2025-03-03 09:59 [facility] 0.47 uiu/ml (missing) BILIRUBIN,TOTAL 2025-03-03 09:59 [facility] 0.6 mg/dl As of September 2022 testing method has changed, this may include reference ranges. CREATININE 2025-03-03 09:59 [facility] 1.0 mg/dl As of September 2022 testing method has changed, this may include reference ranges. ALBUMIN/GLOBULIN RATIO 2025-03-03 09:59 [facility] 1.3 (missing) (missing) ALKALINE PHOSPHATASE 2025-03-03 09:59 [facility] 105 iu/l As of September 2022 testing method has changed, this may include reference ranges. CHLORIDE 2025-03-03 09:59 [facility] 106 mmol/l As of September 2022 testing method has changed, this may include reference ranges. RED CELL DISTRIBUTION WIDTH 2025-03-03 09:59 [facility] 13.5 % (missing) SODIUM 2025-03-03 09:59 [facility] 137 mmol/l (missing) AST ASPARTATE AMINOTRANSFERASE 2025-03-03 09:59 [facility] 14 iu/l As of September 2022 testing method has changed, this may include reference ranges. HGB - HEMOGLOBIN 2025-03-03 09:59 [facility] 14.2 g/dl (missing) BUN - BLOOD UREA NITROGEN 2025-03-03 09:59 [facility] 15 mg/dl As of September 2022 testing method has changed, this may include reference ranges. ALT ALANINE AMINOTRANSFERASE 2025-03-03 09:59 [facility] 16 iu/l As of September 2022 testing method has changed, this may include reference ranges. PLT - PLATELET COUNT 2025-03-03 09:59 [facility] 235 10 3/ul (missing) CARBON DIOXIDE - CO2 2025-03-03 09:59 [facility] 26 mmol/l As of September 2022 testing method has changed, this may include reference ranges. MEAN CORPUSCULAR HEMOGLOBIN 2025-03-03 09:59 [facility] 27.2 pg (missing) GLOBULIN 2025-03-03 09:59 [facility] 3.0 g/dl (missing) ALBUMIN 2025-03-03 09:59 [facility] 3.8 g/dl As of September 2022 testing method has changed, this may include reference ranges. MEAN CORPUSCULAR HGB CONC 2025-03-03 09:59 [facility] 31.9 g/dl (missing) POTASSIUM 2025-03-03 09:59 [facility] 4.6 mmol/l As of September 2022 testing method has changed, this may include reference ranges. HCT - HEMATOCRIT 2025-03-03 09:59 [facility] 44.5 % (missing) ANION GAP 2025-03-03 09:59 [facility] 5.0 (missing) (missing) RED BLOOD COUNT 2025-03-03 09:59 [facility] 5.22 10 6/ul (missing) GFR - MDRD 2025-03-03 09:59 [facility] 57 (missing) The IDMS-traceable MDRD Study Equation has been validated extensively in and populations between the ages of 18 and 70 with impaired kidney function (eGFR < 60 mL/min/1.73m2) and has shown good performance for patients with all common causes of kidney disease. Although this equation has not been validated for patients older than 70, an MDRD-derived eGFR may still be a useful tool for providers caring for patients older than 70. References: http://www.nkdep. nih.gov/lab-evalu ation/gfr/creatin ine-stand ardization, last updated May 2011. TOTAL PROTEIN 2025-03-03 09:59 [facility] 6.8 g/dl As of September 2022 testing method has changed, this may include reference ranges. WHITE BLOOD COUNT 2025-03-03 09:59 [facility] 7.1 x10 3/ul (missing) CALCIUM 2025-03-03 09:59 [facility] 8.8 mg/dl As of September 2022 testing method has changed, this may include reference ranges. MEAN CORPUSCULAR VOLUME 2025-03-03 09:59 [facility] 85.2 fl (missing) MEAN PLATELET VOLUME 2025-03-03 09:59 [facility] 9.7 fl (missing) GLUCOSE 2025-03-03 09:59 [facility] 95 mg/dl As of September 2022 testing method has changed, this may include reference ranges. Social History date description facility
[2025-03-07 01:38] LABS: ALT ALANINE AMINOTRANSFERASE 14.0 IU/L (10-60); AST ASPARTATE AMINOTRANSFERASE 16.0 IU/L (10-42); BUN - BLOOD UREA NITROGEN 18.0 mg/dL (6-20); CARBON DIOXIDE - CO2 23.0 mmol/L (21-32); CREATININE 1.2 mg/dL (0.6-1.3); GFR - MDRD 46.0 (>89)
[2025-03-07] MEDS: CEFEPIME 2 GM VIAL IVP STA (01:38)
[2025-03-07 01:44] LABS: B. PARAPERTUSSIS- RESP PCR PAN NOT DETECTED; B. PERTUSSIS- RESP PCR PANEL NOT DETECTED; C. PNEUMONIAE- RESP PCR PANEL NOT DETECTED; CORONAVIRUS 229E-RESP PCR NOT DETECTED; CORONAVIRUS HKU1-RESP PCR NOT DETECTED; CORONAVIRUS NL63-RESP PCR NOT DETECTED; CORONAVIRUS OC43-RESP PCR NOT DETECTED; HUMAN METAPNEUMOVIRUS NOT DETECTED; INFLUENZA A- RESP PCR PANEL NOT DETECTED; INFLUENZA B - RESP PCR PANEL NOT DETECTED; M. PNEUMONIAE- RESP PCR PANEL NOT DETECTED; PARAINFLUENZA VIRUS 1 NOT DETECTED; PARAINFLUENZA VIRUS 2 NOT DETECTED; PARAINFLUENZA VIRUS 4 NOT DETECTED; RHINOVIRUS/ENTEROVIRUS NOT DETECTED; RSV- RESP PCR PANEL NOT DETECTED; SARS-CoV-2 -RESP PCR PANEL NOT DETECTED
[2025-03-07] MEDS ORDERED: NITROGLYCERIN SL 0.4 MG TABLET SL PRN (03:18)
[2025-03-07] MEDS ORDERED: PHENOL THROAT SPRAY 177 ML MM PRN (03:18)
[2025-03-07] MEDS ORDERED: ONDANSETRON 4 MG/2 ML VIAL IVP PRN (03:18)
[2025-03-07] MEDS ORDERED: MORPHINE 10 MG/ML VIAL IVP PRN (03:18)
--- OUTSIDE RECORDS SUMMARY | 2025-03-07 03:28 | EXTERNAL MEDICAL SUMMARY RPT | Continuity of Care Document ---
Author Organization [place] Address [address] [place] [id number] Phone Allergies and Intolerances date description facility reaction severity 2024-11-03 10:00 [id number]^latex^^latex ^^allergy.id [facility] Hives (no severity) 2024-11-03 10:00 [id number]^varicella-zo ster virus glycoprotein E, recombinant^^From Sh[facility]rix (PF)^[facility] 2024-11-03 10:00 [id number]^vaccine adjuvant system, AS01B liposomal^^From Shingrix (PF)^^[facility] ([facility]) 2024-11-03 10:00 [id number]^semaglutide^ ^From [employer]^^allergy.id [facility] burning of the face (no severity) Problems date description facility 2025-03-03 09:37 [facility], [facility] 2025-03-03 09:37 [facility] 2025-03-03 09:37 [facility] 2025-03-03 09:37 Painful micturition, unspecifie d [facility] 2025-03-03 09:42 [facility], [facility] 2025-03-03 09:42 Dehydration [facility] 2025-03-03 09:42 [facility] 2025-03-04 00:03 Hypothyroidism, unspecified i [facility] 2025-03-04 00:03 Dehydration [facility] 2025-03-04 00:03 Dysuria [facility] Results/Labs test date facility value unit notes Result panel 1 CUL, URINE 2025-03-03 09:44 [facility] (missing) (missing) (missing) CEFAZOLIN 2025-03-03 09:44 [facility] (missing) (missing) CEFAZOLIN 2025-03-03 09:44 [facility] 4 (missing) (missing) AMPICILLIN/SULBACTA M 2025-03-03 09:44 [facility] 4/2 (missing) (missing) AMPICILLIN 2025-03-03 09:44 [facility] 8 (missing) (missing) CUL, URINE 2025-03-03 09:44 [facility] Beta-lactamase. Isolates that are initially susceptible may (missing) (missing) CUL, URINE 2025-03-03 09:44 [facility] GNRGRAM NEGATIVE SOTERO TO BE FURTHER IDENTIFIED (missing) (missing) CUL, URINE 2025-03-03 09:44 [facility] IDMIC.1ORG 1 ID/CANDI COM* (missing) (missing) CUL, URINE 2025-03-03 09:44 [facility] IDMIC.2ORG 2 ID/CANDI COM* (missing) (missing) CUL, URINE 2025-03-03 09:44 [facility] Isolates of Enterobacter, Citrobacter, and Serratia may (missing) (missing) CUL, URINE 2025-03-03 09:44 [facility] ORG.1PRELIM ORG ID* (missing) (missing) CUL, URINE 2025-03-03 09:44 [facility] ORG.2PRELIM ORG ID* (missing) (missing) CUL, URINE 2025-03-03 09:44 [facility] PPROPROTEUS SPECIES TO BE FURTHER IDENTIFIED (missing) (missing) O:PROMIR 2025-03-03 09:44 [facility] PROMIRPROTEUS MIRABILISPROTEUS MIRABILIS (missing) (missing) CUL, URINE 2025-03-03 09:44 [facility] Pending (missing) (missing) O:SERFON 2025-03-03 09:44 [facility] SERFONSERRATIA FONTICOLASERRATIA FONTICOLA (missing) (missing) CUL, URINE 2025-03-03 09:44 [facility].1ORG 1 CC* (missing) (missing) CUL, URINE 2025-03-03 09:44 [facility].2ORG 2 CC* (missing) (missing) CUL, URINE 2025-03-03 09:44 [facility] UCC.6COLONY COUNT (missing) (missing) CUL, URINE 2025-03-03 09:44 [facility] YIDENTIFICATION AND SENSITIVITIES TO FOLLOW (missing) (missing) CUL, URINE 2025-03-03 09:44 [facility] become resistant within 3 to 4 days of initiation of (missing) (missing) CUL, URINE 2025-03-03 09:44 [facility] develop resistance during prolonged therapy with third (missing) (missing) CUL, URINE 2025-03-03 09:44 [facility] generation cephalosporins as a result of depression of AmpC (missing) (missing) CUL, URINE 2025-03-03 09:44 [facility] therapy. (missing) (missing) Result panel 2 THYROID STIMULATING HORMONE 2025-03-03 09:59 [facility] 0.47 uiu/ml (missing) BILIRUBIN,TOTAL 2025-03-03 09:59 [facility] 0.6 mg/dl As of September 2022 testing method has changed, this may include reference ranges. CREATININE 2025-03-03 09:59 [facility] 1.0 mg/dl As of September 2022 testing method has changed, this may include reference ranges. ALBUMIN/GLOBULIN RATIO 2025-03-03 09:59 [facility] 1.3 (missing) (missing) ALKALINE PHOSPHATASE 2025-03-03 09:59 [facility] 105 iu/l As of September 2022 testing method has changed, this may include reference ranges. CHLORIDE 2025-03-03 09:59 [facility] 106 mmol/l As of September 2022 testing method has changed, this may include reference ranges. RED CELL DISTRIBUTION WIDTH 2025-03-03 09:59 [facility] 13.5 % (missing) SODIUM 2025-03-03 09:59 [facility] 137 mmol/l (missing) AST ASPARTATE AMINOTRANSFERASE 2025-03-03 09:59 [facility] 14 iu/l As of September 2022 testing method has changed, this may include reference ranges. HGB - HEMOGLOBIN 2025-03-03 09:59 [facility] 14.2 g/dl (missing) BUN - BLOOD UREA NITROGEN 2025-03-03 09:59 [facility] 15 mg/dl As of September 2022 testing method has changed, this may include reference ranges. ALT ALANINE AMINOTRANSFERASE 2025-03-03 09:59 [facility] 16 iu/l As of September 2022 testing method has changed, this may include reference ranges. PLT - PLATELET COUNT 2025-03-03 09:59 [facility] 235 10 3/ul (missing) CARBON DIOXIDE - CO2 2025-03-03 09:59 [facility] 26 mmol/l As of September 2022 testing method has changed, this may include reference ranges. MEAN CORPUSCULAR HEMOGLOBIN 2025-03-03 09:59 [facility] 27.2 pg (missing) GLOBULIN 2025-03-03 09:59 [facility] 3.0 g/dl (missing) ALBUMIN 2025-03-03 09:59 [facility] 3.8 g/dl As of September 2022 testing method has changed, this may include reference ranges. MEAN CORPUSCULAR HGB CONC 2025-03-03 09:59 [facility] 31.9 g/dl (missing) POTASSIUM 2025-03-03 09:59 [facility] 4.6 mmol/l As of September 2022 testing method has changed, this may include reference ranges. HCT - HEMATOCRIT 2025-03-03 09:59 [facility] 44.5 % (missing) ANION GAP 2025-03-03 09:59 [facility] 5.0 (missing) (missing) RED BLOOD COUNT 2025-03-03 09:59 [facility] 5.22 10 6/ul (missing) GFR - MDRD 2025-03-03 09:59 [facility] 57 (missing) The IDMS-traceable MDRD Study Equation [...] updated May 2011. TOTAL PROTEIN 2025-03-03 09:59 [facility] 6.8 g/dl As of September 2022 testing method has changed, this may include reference ranges. WHITE BLOOD COUNT 2025-03-03 09:59 [facility] 7.1 x10 3/ul (missing) CALCIUM 2025-03-03 09:59 [facility] 8.8 mg/dl As of September 2022 testing method has changed, this may include reference ranges. MEAN CORPUSCULAR VOLUME 2025-03-03 09:59 [facility] 85.2 fl (missing) MEAN PLATELET VOLUME 2025-03-03 09:59 [facility] 9.7 fl (missing) GLUCOSE 2025-03-03 09:59 [facility] 95 mg/dl As of September 2022 testing method has changed, this may include reference ranges. Result panel 3 SARS-CoV-2 -RESP PCR PANEL 2025-03-07 00:49 [facility] NOT DETECTED (missing) A negative test result for this test indicates that SARS-CoV-2 RNA was not present in the specimen above the limit of detection. Testing performed on the BioFire RP2.1 Panel, a multiplexed nucleic acid repiratory panel. Negative results do not preclude infection with SARS-CoV-2 virus and should not be the sole basis of a patient management decision. In some patients repeat testing at various time points may be necessary for virus detection. False-negative results may arise from improper sample collection, degradation of viral RNA during shipping or storage, the presence of PCR inhibitors, and/or mutation in the SARS-CoV-2 virus. INFLUENZA A- RESP PCR PANEL 2025-03-07 00:49 [facility] NOT DETECTED (missing) Influenza A including subtypes H1, H3, and H1-2009 not detected by the BioFire RP2.1 Panel, a multiplexed nucleic acid test intended for the simultaneous qualitative detection and differentiation of nucleic acids from multiple viral and bacterial respiratory organisms. B. PARAPERTUSSIS- RESP PCR NOLAND 2025-03-07 00:49 [facility] NOT DETECTED (missing) Negative results for this organism do not preclude infection with this organism and may require additional laboratory testing (e.g., bacterial and viral culture, immunofluorescence, and radiography) when evaluating a patient with possible respiratory tract infection. B. PERTUSSIS- RESP PCR PANEL 2025-03-07:49 [facility] NOT DETECTED (missing) Negative results for this organism do not preclude infection with this organism and may require additional laboratory testing (e.g., bacterial and viral culture, immunofluorescence, and radiography) when evaluating a patient with possible respiratory tract infection. C. PNEUMONIAE- RESP PCR PANEL 2025-03-07:49 [facility] NOT DETECTED (missing) Negative results for this organism do not preclude infection with this organism and may require additional laboratory testing (e.g., bacterial and viral culture, immunofluorescence, and radiography) when evaluating a patient with possible respiratory tract infection. M. PNEUMONIAE- RESP PCR PANEL 2025-03-07:49 [facility] NOT DETECTED (missing) Negative results for this organism do not preclude infection with this organism and may require additional laboratory testing (e.g., bacterial and viral culture, immunofluorescence, and radiography) when evaluating a patient with possible respiratory tract infection. CORONAVIRUS 229E-RESP PCR 2025-03-07:49 [facility] NOT DETECTED (missing) Negative results in the setting ofa respiratory illness may be due to infection with pathogens not detected by this test, or lower respiratory tract infection that may not be detected by nasopharyngeal specimen. CORONAVIRUS HKU1-RESP PCR 2025-03-07:49 [facility] NOT DETECTED (missing) Negative results in the setting ofa respiratory illness may be due to infection with pathogens not detected by this test, or lower respiratory tract infection that may not be detected by nasopharyngeal specimen. CORONAVIRUS CT23-CGLE PCR 2025-03-07:49 [facility] NOT DETECTED (missing) Negative results in the setting ofa respiratory illness may be due to infection with pathogens not detected by this test, or lower respiratory tract infection that may not be detected by nasopharyngeal specimen. CORONAVIRUS MI84-WCDS PCR 2025-03-07:49 [facility] NOT DETECTED (missing) Negative results in the setting ofa respiratory illness may be due to infection with pathogens not detected by this test, or lower respiratory tract infection that may not be detected by nasopharyngeal specimen. HUMAN METAPNEUMOVIRUS 2025-03-07:49 [facility] NOT DETECTED (missing) Negative results in the setting ofa respiratory illness may be due to infection with pathogens not detected by this test, or lower respiratory tract infection that may not be detected by nasopharyngeal specimen. INFLUENZA B - RESP PCR PANEL 2025-03-07 00:49 [facility] NOT DETECTED (missing) Negative results in the setting ofa respiratory illness may be due to infection with pathogens not detected by this test, or lower respiratory tract infection that may not be detected by nasopharyngeal specimen. PARAINFLUENZA VIRUS 1 2025-03-07 00:49 [facility] NOT DETECTED (missing) Negative results in the setting ofa respiratory illness may be due to infection with pathogens not detected by this test, or lower respiratory tract infection that may not be detected by nasopharyngeal specimen. PARAINFLUENZA VIRUS 2 2025-03-07 00:49 [facility] NOT DETECTED (missing) Negative results in the setting ofa respiratory illness may be due to infection with pathogens not detected by this test, or lower respiratory tract infection that may not be detected by nasopharyngeal specimen. PARAINFLUENZA VIRUS 3 2025-03-07 00:49 [facility] NOT DETECTED (missing) Negative results in the setting ofa respiratory illness may be due to infection with pathogens not detected by this test, or lower respiratory tract infection that may not be detected by nasopharyngeal specimen. PARAINFLUENZA VIRUS 4 2025-03-07 00:49 [facility] NOT DETECTED (missing) Negative results in the setting ofa respiratory illness may be due to infection with pathogens not detected by this test, or lower respiratory tract infection that may not be detected by nasopharyngeal specimen. RHINOVIRUS/ENTEROVI JOANA 2025-03-07 00:49 [facility] NOT DETECTED (missing) Negative results in the setting ofa respiratory illness may be due to infection with pathogens not detected by this test, or lower respiratory tract infection that may not be detected by nasopharyngeal specimen. RSV- RESP PCR PANEL 2025-03-07 00:49 [facility] NOT DETECTED (missing) Negative results in the setting ofa respiratory illness may be due to infection with pathogens not detected by this test, or lower respiratory tract infection that may not be detected by nasopharyngeal specimen. ADENOVIRUS - RESP PCR PANEL 2025-03-07 00:49 [facility] NOT DETECTED (missing) UNKNOWN Negative results in the setting ofa respiratory illness may be due to infection with pathogens not detected by this test, or lower respiratory tract infection that may not be detected by nasopharyngeal specimen. Result panel 4 NUCLEATED RED BLOOD CELLS AUTO 2025-03-07 01:10 [facility] 0.0 /100wbc (missing) BASOPHILS # (AUTO) 2025-03-07 01:10 [facility] 0.0 10 3/ul (missing) NRBC ABSOLUTE COUNT (AUTO) 2025-03-07 01:10 [facility] 0.00 x10 3/ul (missing) EOSINOPHILS # (AUTO) 2025-03-07 01:10 [facility] 0.1 10 3/ul (missing) PROCALCITONIN 2025-03-07 01:10 [facility] 0.10 ng/ml PCT Concentration (ng/mL) Children >72hrs old and Adults Interpretation ====== ======= <0.5 Low risk of severe sepsis and/or septic shock >2.0 High risk of severe sepsis and/or septic shock Concentrations under 0.5 ng/mL do not exclude local infections or systemic infections in their initial stages (e.g. under six hours from onset of illness). PCT concentrations between 0.5 and 2.0 ng/mL should be interpreted with consideration of the patient's history. In this range, it is recommended to retest PCT within 6 to 24hours. BILIRUBIN,TOTAL 2025-03-07 01:10 [facility] 0.4 mg/dl As of September 2022 testing method has changed, this may include reference ranges. MONOCYTES # (AUTO) 2025-03-07 01:10 [facility] 0.6 10 3/ul (missing) CREATININE 2025-03-07 01:10 [facility] 1.2 mg/dl As of September 2022 testing method has changed, this may include reference ranges. LYMPHOCYTES # (AUTO) 2025-03-07 01:10 [facility] 1.3 10 3/ul (missing) ALBUMIN/GLOBULIN RATIO 2025-03-07 01:10 [facility] 1.4 (missing) (missing) MAGNESIUM 2025-03-07 01:10 [facility] 1.8 mg/dl As of September 2022 testing method has changed, this may include reference ranges. MEAN PLATELET VOLUME 2025-03-07 01:10 [facility] 10.0 fl (missing) ALKALINE PHOSPHATASE 2025-03-07 01:10 [facility] 101 iu/l As of September 2022 testing method has changed, this may include reference ranges. CHLORIDE 2025-03-07 01:10 [facility] 107 mmol/l As of September 2022 testing method has changed, this may include reference ranges. NEUTROPHILS # (AUTO) 2025-03-07 01:10 [facility] 13.0 10 3/ul (missing) HGB - HEMOGLOBIN 2025-03-07 01:10 [facility] 13.4 g/dl (missing) SODIUM 2025-03-07 01:10 [facility] 137 mmol/l (missing) ALT ALANINE AMINOTRANSFERASE 2025-03-07 01:10 [facility] 14 iu/l As of September 2022 testing method has changed, this may include reference ranges. RED CELL DISTRIBUTION WIDTH 2025-03-07 01:10 [facility] 14.3 % (missing) WHITE BLOOD COUNT 2025-03-07 01:10 [facility] 15.0 x10 3/ul (missing) GLUCOSE 2025-03-07 01:10 [facility] 152 mg/dl As of September 2022 testing method has changed, this may include reference ranges. AST ASPARTATE AMINOTRANSFERASE 2025-03-07 01:10 [facility] 16 iu/l As of September 2022 testing method has changed, this may include reference ranges. BUN - BLOOD UREA NITROGEN 2025-03-07 01:10 [facility] 18 mg/dl As of September 2022 testing method has changed, this may include reference ranges. GLOBULIN 2025-03-07 01:10 [facility] 2.7 g/dl (missing) LIPASE 2025-03-07 01:10 [facility] 20 u/l As of September 2022 testing method has changed, this may include reference ranges. PLT - PLATELET COUNT 2025-03-07 01:10 [facility] 220 10 3/ul (missing) CARBON DIOXIDE - CO2 2025-03-07 01:10 [facility] 23 mmol/l As of September 2022 testing method has changed, this may include reference ranges. MEAN CORPUSCULAR HEMOGLOBIN 2025-03-07 01:10 [facility] 26.9 pg (missing) ALBUMIN 2025-03-07 01:10 [facility] 3.9 g/dl As of September 2022 testing method has changed, this may include reference ranges. MEAN CORPUSCULAR HGB CONC 2025-03-07 01:10 [facility] 30.8 g/dl (missing) POTASSIUM 2025-03-07 01:10 [facility] 4.1 mmol/l As of September 2022 testing method has changed, this may include reference ranges. RED BLOOD COUNT 2025-03-07 01:10 [facility] 4.98 10 6/ul (missing) HCT - HEMATOCRIT 2025-03-07 01:10 [facility] 43.5 % (missing) GFR - MDRD 2025-03-07 01:10 [facility] 46 (missing) The IDMS-traceable MDRD Study Equation has [...] caring for patients older than 70. References: http://www.nkdep.ni h.gov/lab-evaluatio n/gfr/creatinine-st and ardization, last updated May 2011. TOTAL PROTEIN 2025-03-07 01:10 [facility] 6.6 g/dl As of September 2022 testing method has changed, this may include reference ranges. ANION GAP 2025-03-07 01:10 [facility] 7.0 (missing) (missing) CALCIUM 2025-03-07 01:10 [facility] 8.6 mg/dl As of September 2022 testing method has changed, this may include reference ranges. MEAN CORPUSCULAR VOLUME 2025-03-07 01:10 [facility] 87.3 fl (missing) Social History date description facility
[2025-03-07] MEDS ORDERED: VANCOMYCIN INJ 2 GM in SODIUM CHLORIDE 0.9% 500 ML IV SCH (04:00)
[2025-03-07] MEDS ORDERED: VANCOMYCIN INJ 2.5 GM in SODIUM CHLORIDE 0.9% 500 ML IV SCH (04:00)
[2025-03-07] MEDS: PIPERACILLIN/TAZOBACTAM 3.375 GM in SODIUM CHLORIDE 0.9% MINIBAG 100 ML IV SCH (04:38)
[2025-03-07 04:43] LABS: HCT - HEMATOCRIT 40.1 % (37.0-47.0); HGB - HEMOGLOBIN 12.4 g/dL (12.0-16.0); MEAN PLATELET VOLUME 9.8 fL (7.9-10.8); NRBC ABSOLUTE COUNT (AUTO) 0.00 x10^3/uL; NUCLEATED RED BLOOD CELLS AUTO 0.0 /100WBC; PLT - PLATELET COUNT 206 10^3/uL (130-450); RED CELL DISTRIBUTION WIDTH 14.3 % (12.0-15.0)
--- NOTE | 2025-03-07 04:47 | HISTORY & PHYSICAL EXAMINATION ---
Chief Complaint Chief Complaint Chief Complaint: sob, cough History of Present Illness History of Present Illness HPI Comment/Other: pt with h/o ILD, who sees pulm @ [facility] in [place], presents with sob + cough that developed over last 24 h. she states she usually has these episodes at least once per year. lives alone, no sick contacts, and no recent travel. vaccinated against flu but not covid. she also reports having subjective fevers and cough productive of whitish sputum, along with chest discomfort exacerbated by cough. she did have nausea and vomiting d/t coughing episodes and has not eaten much in the last 24 h. no dysuria reported. Review of Systems Status of ROS: 10 or more systems reviewed and unremarkable except as noted in history and below PFSH Active Problems All Active Problems (Updated 03/07/25 @ 03:04 by Dionte Alcala MD) Interstitial lung abnormality (MP) (Acute) COPD with acute exacerbation (Acute) Hypoxia (Acute) Acute dyspnea (Acute) Acute lower respiratory infection (Acute) Dehydration (Acute) Hypothyroidism (Chronic) Elevated blood pressure reading in office without diagnosis of hypertension (Acute) Dysuria (Acute) Otitis externa (Acute) Cough (Acute) Recurrent sinusitis (Acute) Medical History Medical History (Updated 03/07/25 @ 03:04 by Dionte Alcala MD) Cough Alcohol intoxication Social History Social History Smoking Status: Current every day smoker Number of Years Smoked: 30 How many cigarettes a day do you smoke? (20 cigarettes=1 Pk): 5 Living arrangement: At home Do you feel safe in your home environment?: Yes History of physical, verbal, emotional, or financial abuse?: No Frequency: Occasional POLST Patient has POLST: No Meds/Allgy Home Medications Ambulatory Orders Medication Instructions Recorded Confirmed fluoxetine 10 mg capsule 80 mg ORAL DAILY 11/19/14 levothyroxine 125 mcg tablet 175 mcg ORAL DAILY 11/03/24 omeprazole 20 mg tablet,delayed 20 mg PO DAILY 8 11/03/24 release albuterol sulfate 90 mcg/actuation 1 - 2 puff inhalati on Q4HR PRN 06/03/18 11/03/24 aerosol inhaler (Ventolin HFA) Shortness Of Air/Wheezi ng ##1 dexamethasone 4 mg tablet 4 mg PO DAILY #5 tabs 08/30/24 diphenhydramine HCl 25 mg capsule 25 mg PO Q4-6H PRN C ough #30 caps 05/18/19 08/30/24 (Banophen) hydrocodone 5 mg-acetaminophen 325 1 tab PO BID PRN Pa in #10 tabs 01/19/23 11/03/24 mg tablet loratadine 10 mg tablet mg PO 01/31/24 11/03/24 benzonatate 200 mg capsule 200 mg PO TID PRN cough #30 caps 11/03/24 11/03/24 sulfamethoxazole 800 1 tab PO BID 5 days #10 tabs 03/03/25 03/03/25 mg-trimethoprim 160 mg tablet Allergies Allergies Allergy/AdvReac Type Severity Reaction Status Date / Time semaglutide (From [employer]) Allergy Severe burning of Verified 11/03/24 09:30 the face latex Allergy Hives Verified 11/03/24 09:30 vaccine adjuvant system, Allergy Hives Verified 11/03/24 09:30 AS01B liposomal (From Shingrix (PF)) varicella-zoster virus Allergy Hives Verified 11/03/24 09:30 glycoprotein E, recombinant (From Shingrix (PF)) Exam Exam Vital Signs: Vital Signs x48h Temp Pulse Resp BP Pulse Ox O2 Flow Rate 03/07/25 02:38 103 H 20 107/62 100 10 03/07/25 02:05 101 H 22 99/41 L 98 10 03/07/25 01:11 10 03/07/25 01:00 118 H 28 H 12 03/07/25 00:51 38.9 C H 123 H 30 H 139/70 H 95 10 Constitutional normal general appearance and no apparent distress HENMT normocephalic and head/scalp atraumatic Eyes EOMs intact bilaterally Neck/C-Spine visual inspection normal Respiratory no use of accessory muscles Cardiovascular details per ed charting Gastrointestinal no ascites Neurology speech normal Psychiatry mental status grossly normal, oriented x3, thought process normal and cooperative Conclusion/Plan Problem List (1) Interstitial lung abnormality (MP): (2) COPD with acute exacerbation: Lab Results 03/07/25 01:10 03/07/25 01:10 Other Other Results/Comments: pt with - - acute hypoxemic resp failure with h/o ILD in setting of copd exacerbation + pna (below) nebs, o2, vanc, zosyn, steroids check CT chest resp viral panel NEG - pna in setting of above vanc + zosyn given immuncompromised status and risk of complex infection (can tailor as needed) sputum culture - gomez possible pre-renal (pt has had reduced po intake) check renal sono continue IVF - hyperglycemia no reported h/o t2dm check a1c, tsh, lipids - tobacco use disorder pt still smokes daily counseled to stop
[2025-03-07 04:58] LABS: ALT ALANINE AMINOTRANSFERASE 12 IU/L (10-60); AST ASPARTATE AMINOTRANSFERASE 15 IU/L (10-42); BUN - BLOOD UREA NITROGEN 17 mg/dL (6-20); CARBON DIOXIDE - CO2 19 mmol/L (21-32); CHOL/HDL RATIO 2.6 (<4.4); CREATININE 1.1 mg/dL (0.6-1.3); GFR - MDRD 51 (>89); LDL/HDL RATIO 1.4 (<4.4); VLDL CHOLESTEROL 8 mg/dL
[2025-03-07] MEDS: VANCOMYCIN INJ 2.5 GM in SODIUM CHLORIDE 0.9% 500 ML IV SCH (05:39)
[2025-03-07] MEDS: ACETAMINOPHEN 325 MG TABLET PO PRN (06:05)
[2025-03-07 06:40] LABS: ESTIMATED AVERAGE GLUCOSE 134 mg/dL (70-100); HEMOGLOBIN A1c% 6.3 % (4.27-6.07)
--- NOTE | 2025-03-07 08:00 | CT Report ---
PROCEDURE: CT Chest WO INDICATIONS: resp distress, pna TECHNIQUE: A CT scan of the chest was performed. Intravenous contrast media was not administered. Images were recorded and evaluated at appropriate window settings. Reformats: axial MIP of the chest, coronal and sagittal. For radiation dose reduction, the following was used: automated exposure control, adjustment of mA and/or kV according to patient size. COMPARISON: Chest film dated 03/07/2025 FINDINGS: Image quality: Diagnostic. Chest wall and lower neck: No thyroid nodule which requires sonographic follow up. No axillary or supraclavicular adenopathy by size. Lungs and pleura: Extensive bilateral groundglass opacities. Consider infection versus inflammation. Biapical subpleural reticulations consistent with pulmonary fibrosis. Mediastinum: Heart size is normal. No pericardial effusion. No large vessel abnormality. No mediastinal adenopathy by size criteria. Bones: No aggressive osseous abnormality. Upper Abdomen: Unremarkable. IMPRESSION: Diffuse extensive bilateral groundglass opacities may represent acute inflammation or acute infection. 2. Biapical predominant pulmonary fibrosis. Progress films are recommended Findings are concordant with preliminary interpretation provided by [facility]. Reviewed by: Stefan Dye MD on 03/07/2025 7:57 AM PST Approved by: Stefan Dye MD on 03/07/2025 7:57 AM PST Station ID: [id number]
[2025-03-07] MEDS ORDERED: LEVOTHYROXINE 25 MCG TABLET PO SCH (09:00)
[2025-03-07] MEDS ORDERED: ENOXAPARIN 40 MG/0.4 ML SYRINGE SUBQ SCH (09:00)
[2025-03-07] MEDS: LACTATED RINGERS 1,000 ML IV SCH (09:05)
[2025-03-07] MEDS: FLUoxetine 10 MG CAPSULE PO SCH (09:06)
[2025-03-07] MEDS: PANTOPRAZOLE 40 MG TABLET PO SCH (09:06)
[2025-03-07] MEDS: LACTOBACILLUS RHAMNOSUS GG CAPSULE PO SCH (09:06)
[2025-03-07] MEDS: HEPARIN 5,000 UNIT/ML VIAL SUBQ SCH (09:06)
[2025-03-07] MEDS: PIPERACILLIN/TAZOBACTAM 3.375 GM in SODIUM CHLORIDE 0.9% 100ML 100 ML IV SCH (09:07)
[2025-03-07] MEDS: LEVOTHYROXINE 75 MCG TABLET PO SCH (10:00)
[2025-03-07] MEDS: LEVOTHYROXINE 100 MCG TABLET PO SCH (10:00)
[2025-03-07] MEDS: NICOTINE 7 MG PATCH TOP SCH (11:30)
[2025-03-07] MEDS: NYSTATIN POWDER 15 GM TOP SCH (11:36)
[2025-03-07] MEDS: BENZONATATE 100 MG CAPSULE PO PRN (12:42)
[2025-03-07] MEDS: ALBUTEROL NEB 2.5 MG/3 ML INH PRN (12:56)
--- NOTE | 2025-03-07 13:57 | PHARMACY PROGRESS NOTE ---
Best Possible Medication History Admit Date and Time: 03/07/25 [id number] Home Medications Medication Instructions Recorded Confirmed Type fluoxetine 10 mg capsule 80 mg ORAL DAILY 11/19/14 History levothyroxine 125 mcg tablet 125 mcg ORAL DAILY 03/07/25 History omeprazole 20 mg tablet,delayed 20 mg PO DAILY 8 03/07/25 History release albuterol sulfate 90 mcg/actuation 1 - 2 puff inhalati on Q4HR PRN 06/03/18 03/07/25 Rx aerosol inhaler (Ventolin HFA) Shortness Of Air/Wheezi ng ##1 loratadine 10 mg tablet 10 mg PO DAILY 01/31/2402/15 History benzonatate 200 mg capsule 200 mg PO TID PRN cough #30 caps 11/03/24 03/07/25 Rx sulfamethoxazole 800 1 tab PO BID 5 days #10 tabs 03/03/25 03/07/25 Rx mg-trimethoprim 160 mg tablet Processed by: Pharmacy Medications reviewed in ED?: Yes Medication History completed: Yes Patient Interview: Completed Secondary Source(s): Insurance records [facility] Statement: As the person ultimately responsible for medication therapy, providers are able to order a medication from an existing home medication list in [facility] via the "Reconcile Routine" prior to Confirmation of that medication by manager sales support. Such practice is discouraged except when the physician, in their clinical judgment, deems that a medical need exists for a medication without regard to previous use.
--- NOTE | 2025-03-07 14:38 | Ultrasound Report ---
PROCEDURE: US Renal (Retroperitoneal) INDICATIONS: gomez TECHNIQUE: Real-time scanning was performed of the retroperitoneal organs, with image documentation. COMPARISON: None. FINDINGS: Technically difficult exam due to patient body habitus. Kidneys: Kidneys are normal in size, with normal parenchymal echogenicity. Right kidney measures 10.5 cm long; left kidney measures 10.4 cm long. No solid masses. No hydronephrosis. No shadowing stones. No complex renal cystic lesions which require dedicated follow up. Bladder: Decompressed and not well evaluated. Miscellaneous: No free abdominal fluid. IMPRESSION: No hydronephrosis or nephrolithiasis. No significant renal abnormality. Reviewed by: Rj Longoria MD on 03/07/2025 2:35 PM PST Approved by: Rj Longoria MD on 03/07/2025 2:35 PM PST Station ID: [id number]
[2025-03-07] MEDS ORDERED: BENZOCAINE/MENTHOL LOZENGE MM PRN (16:25)
[2025-03-07] MEDS: methylPREDNISolone SUCCINATE 40 MG/ML VIAL IVP SCH (17:06)
[2025-03-08] MEDS: IPRATROPIUM/ALBUTEROL 3 ML NEB INH SCH (07:11)
[2025-03-08 08:12] LABS: HCT - HEMATOCRIT 38.5 % (37.0-47.0); HGB - HEMOGLOBIN 12.2 g/dL (12.0-16.0); MEAN PLATELET VOLUME 10.0 fL (7.9-10.8); PLT - PLATELET COUNT 210.0 10^3/uL (130-450); RED CELL DISTRIBUTION WIDTH 14.5 % (12.0-15.0)
[2025-03-08 08:25] LABS: BUN - BLOOD UREA NITROGEN 18.0 mg/dL (6-20); CARBON DIOXIDE - CO2 22.0 mmol/L (21-32); CREATININE 0.9 mg/dL (0.6-1.3); GFR - MDRD 64.0 (>89)
[2025-03-08] MEDS: PIPERACILLIN/TAZOBACTAM 3.375 GM in SODIUM CHLORIDE 0.9% MINIBAG 100 ML IV SCH (09:11)
[2025-03-08] MEDS: FUROSEMIDE 20 MG TABLET PO SCH (09:16)
--- NOTE | 2025-03-08 09:27 | PROVIDER PROGRESS NOTE ---
Subjective Subjective Subjective: Overnight, patient was coughing extensively, and desaturated during these episodes. She was placed on high flow nasal cannula. She still is a persistent cough, but it is improving. She denies any fevers or chills. She states she is feeling better this morning. She always feels better after breathing treatment. She has oxygen at home that she uses as needed. She states that she has flareups like this once a year, and she does not know what the trigger is. She says she is getting worked up at the [facility] and her obstetrics tech is Dr. Rita Dickensords have been requested. Current Medications Current Medications Current Medications: Current Medications Generic Name Dose Route Start Last Admin Trade Name Freq PRN Reason Stop Dose Admin Acetaminophen 650 mg 03/07/25 03:18 03/08/25 02:36 Acetaminophen 325 Mg Tablet PO 650 mg Q6H PRN Administration pain, fever Albuterol 2.5 mg 03/07/25 03:25 03/08/25 02:31 Albuterol Neb 2.5 Mg/3 Ml INH 2.5 mg Q4H PRN Administration Shortness of Air/Wheezing Albuterol/Ipratropium 3 ml 03/08/25 07:00 03/08/25 07:11 Ipratropium/Albuterol 3 Ml Neb INH 3 ml RTQID DANIEL Administration Benzonatate 200 mg 03/07/25 03:10 03/07/25 12:42 Benzonatate 100 Mg Capsule PO 200 mg TID PRN Administration Cough Fluoxetine HCl 80 mg 03/07/25 09:00 03/08/25 08:48 Fluoxetine 10 Mg Capsule PO 80 mg DAILY DANIEL Administration Furosemide 20 mg 03/08/25 10:00 03/08/25 09:16 Furosemide 20 Mg Tablet PO 20 mg DAILY DANIEL Administration Heparin Sodium (Porcine) 5,000 unit 03/07/25 09:00 03/08/25 08:59 Heparin 5,000 Unit/Ml Vial SUBQ 5,000 unit BID DANIEL Administration Piperacillin Sod/Tazobactam 100 mls @ 25 mls/hr 03/08/25 09:03 03/08/25 09:11 Sod 3.375 gm/ Sodium Chloride IV Not Given Q8H DANIEL Lactobacillus Rhamnosus 1 cap 03/07/25 09:00 03/08/25 08:48 Lactobacillus Rhamnosus Gg Capsule PO 1 cap DAILY DANIEL Administration Levothyroxine Sodium 100 mcg 03/07/25 09:00 03/08/25 06:30 Levothyroxine 100 Mcg Tablet PO 100 mcg QDAC DANIEL Administration Levothyroxine Sodium 75 mcg 03/07/25 09:00 03/08/25 06:31 Levothyroxine 75 Mcg Tablet PO 75 mcg QDAC DANIEL Administration Methylprednisolone 40 mg 03/07/25 17:00 03/08/25 06:31 Methylprednisolone Succinate 40 Mg/Ml Vial IVP 40 mg TID DANIEL Administration Morphine Sulfate 2 mg 03/07/25 03:18 Morphine 10 Mg/Ml Vial IVP Q4H PRN Pain Nitroglycerin 0.4 mg 03/07/25 03:18 Nitroglycerin Sl 0.4 Mg Tablet SL Q5MIN PRN Chest Pain Nystatin 1 applic 03/07/25 11:00 03/08/25 08:57 Nystatin Powder 15 Gm TOP 1 applic BID DANIEL Administration Ondansetron HCl 4 mg 03/07/25 03:18 Ondansetron 4 Mg/2 Ml Vial IVP Q8H PRN Nausea / Vomiting Pantoprazole Sodium 40 mg 03/07/25 09:00 03/08/25 08:48 Pantoprazole 40 Mg Tablet PO 40 mg DAILY DANIEL Administration Phenol/Menthol 1 sprays 03/07/25 03:18 Phenol Throat Gabbs 177 Ml MM Q4HR PRN Mouth Sore Pain Throat Lozenges 1 lozenge 03/07/25 16:25 Benzocaine/Menthol Lozenge MM Q2HR PRN Mouth Sore Pain Objective Vital Signs/Intake & Output Reviewed Vital Signs: Yes Vital Signs: Vital Signs x48h Pulse Resp O2 Flow Rate 03/08/25 07:13 74 20 40 03/08/25 03:05 40 03/08/25 02:32 45 03/08/25 02:32 78 16 45 Intake & Output: Intake & Output 03/05/25 03/06/25 03/07/25 03/08/25 23:59 23:59 23:59 23:59 Intake Total 5423 / 5423 99 / 99 Output Total 2074 / 2074 450 / 450 Balance 3348 / 3348 -351 / -351 Weight (kg) 125 kg Objective General Appearance: positive Alert; negative No acute distress (Mild distress noted, but able to talk in complete sentences. Coughs occasionally. Saturating between 94-96% on HHFNC on 40 L.) or Anxious Eyes Bilateral: positive Normal inspection, PERRL and EOMI ENT: positive ENT inspection nml, Pharynx nml and No signs of dehydration Neck: positive Nml inspection, Thyroid nml and No JVD Respiratory: positive Chest non-tender and Other (Fine crackles noted throughout; mild rhonchi, worse in lower lobes.); negative No respiratory distress (Mild distress), Wheezes, Rales or Rhonchi Cardiovascular: positive Regular rate & rhythm, No murmur and No gallop; negative Tachycardia or Systolic murmur Abdomen: positive Non-tender, No organomegaly and No distention; negative Guarding or Splenomegaly Back: positive Nml inspection; negative CVA tenderness (R) or CVA tenderness (L) Skin: positive Color nml, No rash, Warm and Dry Extremities: positive Non-tender, Full ROM, Nml appearance and No pedal edema Neurologic/Psychiatric: positive Oriented x3, Motor nml and Mood/affect nml Lab Results 03/08/25 08:06 03/08/25 08:06 Other Labs: Lab Results x24hrs 03/08/25 Range/Units 08:06 WBC 18.5 H (4.8-10.8) x10^3/uL RBC 4.48 (4.20-5.40) 10^6/uL Hgb 12.2 (12.0-16.0) g/dL Hct 38.5 (37.0-47.0) % MCV 85.9 (81.0-99.0) fL MCH 27.2 (27.0-31.0) pg MCHC 31.7 L (32.0-36.0) g/dL RDW 14.5 (12.0-15.0) % Plt Count 210 (130-450) 10^3/uL MPV 10.0 (7.9-10.8) fL Sodium 137 (135-145) mmol/L Potassium 5.4 H (3.5-4.5) mmol/L Chloride 109 (101-111) mmol/L Carbon Dioxide 22 (21-32) mmol/L Anion Gap 6.0 (6-13) BUN 18 (6-20) mg/dL Creatinine 0.9 (0.6-1.3) mg/dL Estimated GFR (MDRD) 64 L (>89) Glucose 194 H (74-104) mg/dL Calcium 8.8 (8.5-10.3) mg/dL Diagnostic Imaging Diagnostic Imaging Results: positive Final report reviewed Assessment/Plan Problem List (1) Acute hypoxic respiratory failure: (2) Interstitial lung abnormality (MP): Impression: Patient presented with increased dyspnea, cough with yellow to green sputum production. Underlying history of lung disease, unclear diagnosis. Follows with obstetrics tech Dr. Rita Kyle, at the [facility]. CT on admission shows diffuse ground glass opacities. 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 Respiratory viral panel negative. Procalcitonin negative. Leukocytosis stable at 18. Remains on Zosyn, day 2 of therapy. Continue high-dose steroids, IV Solu-Medrol 40 mg 3 times daily. Continue scheduled DuoNebs 4 times daily. Continue Lasix to maintain negative fluid balance. Acute worsening overnight with escalation from 4 L of oxygen to high flow at 40 L. Improvement this morning in subjective dyspnea, continue to wean as tolerated. (3) Sepsis: Impression: Patient with leukocytosis, as well as tachypnea. Blood cultures with no growth to date. Continue Zosyn as above. (4) Hypothyroidism: Impression: Continue levothyroxine. (5) Depression: Impression: Continue fluoxetine.
[2025-03-08] MEDS ORDERED: MORPHINE 2 MG/ML CARPUJECT IVP PRN (10:13)
[2025-03-08 16:32] VITALS: TEMP 98.2
[2025-03-08] MEDS: AZITHROMYCIN 250 MG TABLET PO SCH (16:56)
[2025-03-08] MEDS ORDERED: VANCOMYCIN INJ 1 GM in SODIUM CHLORIDE 0.9% 250 ML IV SCH (17:00)
--- NOTE | 2025-03-08 18:09 | Discharge Summary ---
"Discharge Summary Admit Date: 03/07/25 Discharge Date: 03/08/25 Discharging Provider: Dr. Ritu Hudson Primary Care Provider: [facility] Code Status: Attempt Resuscitation Discharge Facility Name: Transfer - [facility] DIAGNOSES Discharge Diagnoses with Status of Each Condition: Acute hypoxic respiratory failure, acute flareup of chronic hypersensitivity pneumonitispatient initially presented with dyspnea, fevers, chills. She was initially on 3 to 4 L of oxygen, this escalated to 40 L of high flow nasal cannula, and then BiPAP. She received high-dose IV steroids with Solu-Medrol 40 mg 3 times daily, antibiotic coverage with Zosyn and azithromycin, and Lasix to keep hypovolemic to euvolemic status. Discussed her case with her director paid media, at the [facility], Dr. Janine Esteban. Patient preference is to be where her specialist is, and director paid media is in agreement with transfer. Patient transferred to [facility] via ALS. Respiratory viral panel was negative, procalcitonin was negative, leukocytosis stable at 18. Sepsispatient with leukocytosis and tachypnea. Blood cultures no growth to date. Antibiotics as above. Hypothyroidismcontinue levothyroxine. Depressioncontinue fluoxetine. HPI History of Present Illness: Per Sukumar Gray: pt with h/o ILD, who sees pulm @ [facility] in [place], presents with sob + cough that developed over last 24 h. she states she usually has these episodes at least once per year. lives alone, no sick contacts, and no recent travel. vaccinated against flu but not covid. she also reports having subjective fevers and cough productive of whitish sputum, along with chest discomfort exacerbated by cough. she did have nausea and vomiting d/t coughing episodes and has not eaten much in the last 24 h. no dysuria reported. CONSULTS | PROCEDURES Consultations: Pulmonology at the [facility] Procedures: Retroperitoneal [id number] hydronephrosis or nephrolithiasis. Chest CT03/07diffuse extensive bilateral ground glass opacities which may represent acute formation or infection, biapical predominant pulmonary fibrosis. Chest x-ray03/07mild to moderate diffuse peribronchial thickening, likely atypical infection. HOSPITAL COURSE Hospital Course: Patient is a 59-year-old female with a history of chronic hypersensitive pneumonitis normally on room air who initially presented with dyspnea, fevers, chills. She was initially on 3 to 4 L of oxygen, this escalated to 40 L of high flow nasal cannula, and then BiPAP. She received high-dose IV steroids with Solu-Medrol 40 mg 3 times daily, antibiotic coverage with Zosyn and azithromycin, and Lasix to keep hypovolemic to euvolemic status. Discussed her case with her director paid media, at the [facility], Dr. Janine Esteban. Patient preference is to be where her specialist is, and director paid media is in agreement with transfer. Patient transferred to [facility] via ALS. Respiratory viral panel was negative, procalcitonin was negative, leukocytosis stable at 18. She was discharged on BIPAP via ALS. ALLERGIES Allergies Allergy/AdvReac Type Severity Reaction Status Date / Time semaglutide (From [facility]) Allergy Severe burning of Verified 11/03/24 09:30 the face latex Allergy Hives Verified 11/03/24 09:30 vaccine adjuvant system, Allergy Hives Verified 11/03/24 09:30 [id number] liposomal (From [facility] (PF)) varicella-zoster virus Allergy Hives Verified 11/03/24 09:30 glycoprotein E, recombinant (From [employer] (PF)) MEDICATIONS Ambulatory Orders Medication Instructions Recorded Confirmed fluoxetine 10 mg capsule 80 mg ORAL DAILY 11/19/14 levothyroxine 125 mcg tablet 125 mcg ORAL DAILY 03/07/25 omeprazole 20 mg tablet,delayed 20 mg PO DAILY 8 03/07/25 release albuterol sulfate 90 mcg/actuation 1 - 2 puff inhalati on Q4HR PRN 06/03/18 03/07/25 aerosol inhaler (Ventolin HFA) Shortness Of Air/Wheezi ng ##1 loratadine 10 mg tablet 10 mg PO DAILY 01/31/2402/15 benzonatate 200 mg capsule 200 mg PO TID PRN cough #30 caps 11/03/24 03/07/25 PHYSICAL EXAM AT DISCHARGE Vital Signs: Vital Signs x48h Temp Pulse Pulse Resp BP Pulse Ox O2 Flow Rate 03/08/25 16:04 98.2 F 82 22 118/72 93 40 03/08/25 15:28 80 20 40 03/08/25 13:55 91 L 40 03/08/25 11:06 70 20 40 General Appearance: positive Alert; negative No acute distress (Mild distress noted, but able to talk in complete sentences. Coughs occasionally. Saturating between 94-96% on HHFNC on 40 L.) or Anxious Eyes Bilateral: positive Normal inspection, PERRL and EOMI ENT: positive ENT inspection nml, Pharynx nml and No signs of dehydration Neck: positive Nml inspection, Thyroid nml and No JVD Respiratory: positive Chest non-tender and Other (Fine crackles noted throughout; mild rhonchi, worse in lower lobes.); negative No respiratory distress (Mild distress), Wheezes, Rales or Rhonchi Cardiovascular: positive Regular rate & rhythm, No murmur and No gallop; negative Tachycardia or Systolic murmur Abdomen: positive Non-tender, No organomegaly and No distention; negative Guarding or Splenomegaly Back: positive Nml inspection; negative CVA tenderness (R) or CVA tenderness (L) Skin: positive Color nml, No rash, Warm and Dry Extremities: positive Non-tender, Full ROM, Nml appearance and No pedal edema Neurologic/Psychiatric: positive Oriented x3, Motor nml and Mood/affect nml LABS 03/08/25 08:06 03/08/25 08:06 DIAGNOSTIC IMAGING Diagnostic Imaging Results: Final report reviewed SEPSIS Current Stage of Sepsis: Sepsis Possible source of Sepsis: Pulmonary Sepsis Criteria: Suspected or Documented FOLLOW UP Follow Up: Transfer to [facility]. TIME SPENT Time Spent in Discharge (Minutes): 35 Discharge Plan Discharge Patient Disposition: 02 Transfer Acute Care Hosp Condition: Stable Prescriptions: Continued levothyroxine 125 MCG tablet 125 mcg ORAL DAILY fluoxetine 10 MG capsule 80 mg ORAL DAILY omeprazole 20 MG tablet,delayed release (DR/EC) 20 mg PO DAILY albuterol sulfate [Ventolin HFA] 200 PUFFS/18 GM HFA aerosol inhaler 1 - 2 puff inhalation Q4HR PRN (Reason: Shortness Of Air/Wheezing) Qty: 1 0RF benzonatate 200 mg capsule 200 mg PO TID PRN (Reason: cough) Qty: 30 0RF loratadine 10 mg tablet 10 mg PO DAILY Patient Comments: TAKE 1 TABLET BY MOUTH ONCE DAILY TO RELIEVE ALLERGY SYMPTOMS. Activity Restrictions: Activity as Tolerated Diet: Regular Print Language: Tunisian Stand Alone Forms: PCP List, SB[facility] Report called to and time (if no answer, doc. time of each call attempted): damari franco called to facility [phone] Vitals documented within 30 minutes of discharge?: Yes"
[2025-03-08 22:08] VITALS: BP 138/88; O2SAT 96
[2025-03-09] MEDS ORDERED: cefTRIAXone 1 GM VIAL IVP SCH (09:00)
== END 2025-03-08 22:25 | disposition short-term general hospital (02) | DRG 871 ==
LOC: ED 00:37 → ICU 03:24 → MS2 10:55 → ICU 03-08 19:52
PROVIDERS: ADMIT Student in an Organized Health Care Education/Training Program; ATTEND Student in an Organized Health Care Education/Training Program